=== PATIENT | male | born 1965 | race Caucasian/White ===

== ENCOUNTER 2025-03-16 19:07 | Inpatient (IN) | payer OTHER, SELFPAY ==
--- OUTSIDE RECORDS SUMMARY | 2025-03-16 19:12 | XMS_ITS | Clinical Summary ---
Author Organization [facility] Address [address] [place] [address] Care Team Providers Care Credit Review Manager Name Role Phone Ref, Has No Pcp Or Primary Care Provider Unavail able Allergies Active Allergy Reactions Criticality Noted Date Comments Sulfamethoxazole-Trimethoprim Itching 2021 Medications * This document contains information received from the source organization and may not represent a complete record from that organization. metFORMIN (GLUCOPHAGE) 500 mg tablet Take 500 mg by mouth 2 times a day with meals. Active acetaminophen (TYLENOL) 325 mg tablet Take 2 tablets (650 mg total) by mouth every 4 hours as needed for pain, headache or fever. Active benzonatate (TESSALON) 100 mg capsule Take 1 capsule (100 mg total) by mouth 3 times a day as needed for cough. Active buPROPion XL (WELLBUTRIN XL) 300 mg tablet Take 1 tablet (300 mg total) by mouth once a day. Active guaiFENesin (ROBITUSSIN) 100 mg/5 mL syrup Take 10 mL (200 mg total) by mouth every 4 hours as needed for cough. Active psyllium (METAMUCIL) 3.4 gram packet Take 1 packet by mouth once a day. Active fenofibrate nanocrystallized (TRICOR) 145 mg tablet Take 145 mg by mouth once a day. Active gabapentin (NEURONTIN) 100 mg capsule Take 200 mg by mouth 2 (two) times a day. Active rosuvastatin (CRESTOR) 20 mg tablet Take 1 tablet (20 mg total) by mouth nightly. 30 tablet 1 5 4:30 PM EDT Active sertraline (ZOLOFT) 100 mg tablet Take 1 tablet (100 mg total) by mouth once a day. 30 tablet 5 4:30 PM EDT Active Freestyle Lite test strips Test daily before all meals/snack s and once before bedtime. 50 strip 5 4:30 PM EDT Active Freestyle lancets 28 gauge Test daily before all meals/snack s and once before bedtime. 300 each 4:30 PM EDT Active FreeStyle Lite Meter meter Test daily before all meals/snack s and once before bedtime. 1 each 5 4:30 PM EDT Active alcohol swabs pads, medicated Test daily before all meals/snack s and once before bedtime. 100 each 5 4:30 PM EDT Active gabapentin (NEURONTIN) 300 mg capsule Take 1 capsule (300 mg total) by mouth 3 times a day. 90 capsule 2024 Discontinued(E rror) sertraline (ZOLOFT) 25 mg tablet Take 2 tablets (50 mg total) by mouth once a day. 60 tablet 2024 Discontinued traZODone (DESYREL) 50 mg tablet Take 1 tablet (50 mg total) by mouth nightly as needed for sleep. 30 tablet 2024 Discontinued(E rror) buPROPion XL (WELLBUTRIN XL) 300 mg tablet Take 300 mg by mouth every morning. 2024 Discontinued(S top Taking at Discharge) rosuvastatin (CRESTOR) 5 mg tablet Take 5 mg by mouth nightly. 2024 Discontinued(S top Taking at Discharge) sertraline (ZOLOFT) 100 mg tablet Take 150 mg by mouth once a day. 2024 Discontinued(S top Taking at Discharge) rosuvastatin (CRESTOR) 20 mg tablet Take 1 tablet (20 mg total) by mouth nightly. 30 tablet 1 025 2024 Discontinued sertraline (ZOLOFT) 100 mg tablet Take 1 tablet (100 mg total) by mouth once a day. 30 tablet 025 2024 Discontinued Freestyle Lite test strips Test daily before all meals/snack s and once before bedtime. 20 strip 2024 Discontinued Freestyle lancets 28 gauge Test daily before all meals/snack s and once before bedtime. 3 each 025 2024 Discontinued FreeStyle Lite Meter meter Test daily before all meals/snack s and once before bedtime. 1 each 025 2024 Discontinued alcohol swabs pads, medicated Test daily before all meals/snack s and once before bedtime. 1 each 2024 Discontinued Active Problems Problem Noted Date Diagnosed Date Does not have primary care provider 02/25/2025 Assessment & Plan (03/01/2025 2:35 PM EDT): Patient without a PCP. His medications were prescribed on discharge from psychiatric facility at the end of December 2024. Patient reports compliance with his medications since having them filled, however it does not appear he had filled any medications prior 12/2024. Patient is from the [facility], and plans to return to that area after discharge from inpatient psych. Patient informed of need for monitoring of chronic health issues. - Patient provided with [id number] number. - In dc paperwork, patient given addresses to the walk in clinic at the [facility]. He was encouraged to explore similar options closer to [place]. Assessment & Plan (02/28/2025 1:35 PM EDT): Patient without a PCP. His medications were prescribed on discharge from psychiatric facility at the end of December 2024. Patient reports compliance with his medications since having them filled, however it does not appear he had filled any medications prior 12/2024. Patient is from the [facility], and plans to return to that area after discharge from inpatient psych. Patient informed of need for monitoring of chronic health issues. - Patient provided with [id number] number. - In dc paperwork, patient given addresses to the walk in clinic at the [facility]. He was encouraged to explore similar options closer to [place]. Assessment & Plan (02/27/2025 4:38 PM EDT): Patient without a PCP. His medications were prescribed on discharge from psychiatric facility at the end of December 2024. Patient reports compliance with his medications since having them filled, however it does not appear he had filled any medications prior 12/2024. Patient is from the [facility], and plans to return to that area after discharge from inpatient psych. Patient informed of need for monitoring of chronic health issues. - Patient provided with [id number] number. - In dc paperwork, patient given addresses to the walk in clinic at the [facility]. He was encouraged to explore similar options closer to [place]. Assessment & Plan (02/26/2025 8:39 PM EDT): Patient without a PCP. His medications were prescribed on discharge from psychiatric facility at the end of December 2024. Patient reports compliance with his medications since having them filled, however it does not appear he had filled any medications prior 12/2024. Patient is from the [facility], and plans to return to that area after discharge from inpatient psych. Patient informed of need for monitoring of chronic health issues. -Patient provided with [id number] number. -In dc paperwork, patient given addresses to the walk in clinic at the [facility]. He was encouraged to explore similar options closer to [place]. Assessment & Plan (02/25/2025 12:30 PM EDT): Patient without a PCP. His medications were prescribed on discharge from psychiatric facility at the end of December 2024. Patient reports compliance with his medications since having them filled, however it does not appear he had filled any medications prior 12/2024. Patient is from the [facility], and plans to return to that area after discharge from inpatient psych. Patient informed of need for monitoring of chronic health issues. -Patient provided with [id number] number. -In dc paperwork, patient given addresses to the walk in clinic at the [facility]. He was encouraged to explore similar options closer to [place]. Productive cough 02/24/2025 Assessment & Plan (03/01/2025 2:35 PM EDT): 02/24 patient reports 2 days of cough productive of yellow phlegm. Denies shortness of breath, fevers, but does endorse rhinorrhea and post nasal drip, as well as yellow colored nasal mucus. Patient endorses malaise. Rapid COVID PCR sent on 02/23 pending psychiatric bed admission; PCR was negative. He has been afebrile. Chest x-ray with mild peribronchial thickening and under aerated bases but otherwise unremarkable for acute pulmonary processes. WBCs have remained stable, symptoms likely in the setting of common cold. - If patient febrile, consider resending mini-RVP to include flu - Continue with supportive care and symptom management. - Mucinex 600 mg q12 hours - Tessalon and Robitussin PRN - Flonase PRN - Added cepacol 02/26 Assessment & Plan (02/28/2025 1:35 PM EDT): 02/24 patient reports 2 days of cough productive of yellow phlegm. Denies shortness of breath, fevers, but does endorse rhinorrhea and post nasal drip, as well as yellow colored nasal mucus. Patient endorses malaise. Rapid COVID PCR sent on 02/23 pending psychiatric bed admission; PCR was negative. He has been afebrile. Chest x-ray with mild peribronchial thickening and under aerated bases but otherwise unremarkable for acute pulmonary processes. WBCs have remained stable, symptoms likely in the setting of common cold. - If patient febrile, consider resending mini-RVP to include flu - Continue with supportive care and symptom management. - Mucinex 600 mg q12 hours - Tessalon and Robitussin PRN - Flonase PRN - Added cepacol 02/26 Assessment & Plan (02/27/2025 4:38 PM EDT): 02/24 patient reports 2 days of cough productive of yellow phlegm. Denies shortness of breath, fevers, but does endorse rhinorrhea and post nasal drip, as well as yellow colored nasal mucus. Patient endorses malaise. Rapid COVID PCR sent on 02/23 pending psychiatric bed admission; PCR was negative. He has been afebrile. Chest x-ray with mild peribronchial thickening and under aerated bases but otherwise unremarkable for acute pulmonary processes. WBCs have remained stable, symptoms likely in the setting of common cold. - If patient febrile, consider resending mini-RVP to include flu - Continue with supportive care and symptom management. - Mucinex 600 mg q12 hours - Tessalon and Robitussin PRN - Flonase PRN - Added cepacol 02/26 Assessment & Plan (02/26/2025 8:39 PM EDT): 02/24 patient reports 2 days of cough productive of yellow phlegm. Denies shortness of breath, fevers, but does endorse rhinorrhea and post nasal drip, as well as yellow colored nasal mucus. Patient endorses malaise. Rapid COVID PCR sen ton 02/23 pending psychiatric bed admission; PCR was negative. He has been afebrile. CXR pending formal read, however no focal consolidation appreciated on review of imaging. - If patient febrile, consider resending mini-RVP to include flu - Continue with supportive care and symptom management. - Mucinex 600 mg q12 hours - Tessalon and Robitussin PRN - Flonase PRN - Added cepacol 02/26 Assessment & Plan (02/25/2025 12:30 PM EDT): 02/24 patient reports 2 days of cough productive of yellow phlegm. Denies shortness of breath, fevers, but does endorse rhinorrhea and post nasal drip, as well as yellow colored nasal mucus. Patient endorses malaise. Rapid COVID PCR sen ton 02/23 pending psychiatric bed admission; PCR was negative. He has been afebrile. CXR pending formal read, however no focal consolidation appreciated on review of imaging. -If patient febrile, consider resending mini-RVP to include flu -Continue with supportive care and symptom management. -Mucinex 600 mg q12 hours -Tessalon and Robitussin PRN -Flonase PRN Assessment & Plan (02/24/2025 12:24 PM EDT): 02/24 patient reports 2 days of cough productive of yellow phlegm. Denies shortness of breath, fevers, but does endorse rhinorrhea and post nasal drip, as well as yellow colored nasal mucus. Patient endorses malaise. Rapid COVID PCR sen ton 02/23 pending psychiatric bed admission; PCR was negative. He has been afebrile. -If patient febrile, consider resending mini-RVP to include flu -Continue with supportive care and symptom management. -Mucinex 600 mg q12 hours -Tessalon and Robitussin PRN -Flonase PRN Homelessness unspecified 02/24/2025 Assessment & Plan (03/01/2025 2:35 PM EDT): Patient is undomiciled. SW has been consulted this admission. Patient with case loader operator through [facility] who his assisting him with finding housing. - Patient hopefully to DC to [facility] on 03/02 Assessment & Plan (02/28/2025 1:35 PM EDT): Patient is undomiciled. SW has been consulted this admission. Patient with case loader operator through [facility] who his assisting him with finding housing. - Patient will DC to [facility] on 02/28 Assessment & Plan (02/27/2025 4:38 PM EDT): Patient is undomiciled. SW has been consulted this admission. Patient with case loader operator through [facility] who his assisting him with finding housing. - Patient will DC to [facility] on 02/28 Assessment & Plan (02/26/2025 8:39 PM EDT): Patient is undomiciled. SW has been consulted this admission. Patient with case loader operator through [facility] who his assisting him with finding housing. - Patient states he has a place to go on Wednesday, if no inpatient voluntary psych at this time, patient would like to DC - Will discuss with Assessment & Plan (02/25/2025 12:30 PM EDT): Patient is undomiciled. SW has been consulted this admission. Patient with case loader operator through [facility] who his assisting him with finding housing. Assessment & Plan (02/24/2025 12:24 PM EDT): Patient is undomiciled. SW has been consulted this admission. Patient with case loader operator through [facility] who his assisting him with finding housing. Severe episode of recurrent major depressive disorder, without psychotic features 02/17/2025 Assessment & Plan (03/01/2025 2:35 PM EDT): Home medications: bupropion ER 300 mg daily, sertraline 100 mg daily Patient with known history of MDD, prior SI and suicide attempts in the past, and possible PTSD, however unclear if this is formally diagnosed. He has had multiple inpatient psychiatric admissions. Patient presented to the ED with SI, reported intention/plan to OD on home medications. Patient was seen by [facility], and section [address] He was seen later in admission by psych, and he denied SI, but had ongoing depression with current psychosocial stressors contributing. Patient future oriented, there has been no attempt at self harm before arrival to the hospital and since admission; he was no longer felt to meet section 12 criteria on 02/22, HOWEVER inpatient psych team did report he would benefit most from voluntary inpatient psych admission. - Patient no longer on section 12. 1:1 ak'ed - Plan to DC to [facility] pending medical clearance, hopefully 03/02, pt will continue voluntary psych placement search on own - Continue home doses sertraline and home bupropion Assessment & Plan (02/28/2025 1:35 PM EDT): Home medications: bupropion ER 300 mg daily, sertraline 100 mg daily Patient with known history of MDD, prior SI and suicide attempts in the past, and possible PTSD, however unclear if this is formally diagnosed. He has had multiple inpatient psychiatric admissions. Patient presented to the ED with SI, reported intention/plan to OD on home medications. Patient was seen by [facility], and section [address] He was seen later in admission by psych, and he denied SI, but had ongoing depression with current psychosocial stressors contributing. Patient future oriented, there has been no attempt at self harm before arrival to the hospital and since admission; he was no longer felt to meet section 12 criteria on 02/22, HOWEVER inpatient psych team did report he would benefit most from voluntary inpatient psych admission. - Patient no longer on section 12. 1:1 dc'ed - Plan to DC to [facility] pending medical clearance, hopefully 03/01, pt will continue voluntary psych placement search on own - Continue home doses sertraline and home bupropion Assessment & Plan (02/27/2025 4:38 PM EDT): Home medications: bupropion ER 300 mg daily, sertraline 100 mg daily Patient with known history of MDD, prior SI and suicide attempts in the past, and possible PTSD, however unclear if this is formally diagnosed. He has had multiple inpatient psychiatric admissions. Patient presented to the ED with SI, reported intention/plan to OD on home medications. Patient was seen by EM, and section [address] He was seen later in admission by psych, and he denied SI, but had ongoing depression with current psychosocial stressors contributing. Patient future oriented, there has been no attempt at self harm before arrival to the hospital and since admission; he was no longer felt to meet section 12 criteria on 02/22, HOWEVER inpatient psych team did report he would benefit most from voluntary inpatient psych admission. Sertaline dose was reduced to 50 inpatient, 02/27 reached out to psych to see if pt should remain on 50mg on DC or increase to home dose 100mg--awaiting callback. - Patient no longer on section 12. 1:1 dc'ed - Plan to DC to [facility] 02/28, pt will continue voluntary psych placement search on own - Continue reduced sertraline and home bupropion Assessment & Plan (02/26/2025 8:39 PM EDT): Home medications: bupropion ER 300 mg daily, sertraline 100 mg daily Patient with known history of MDD, prior SI and suicide attempts in the past, and possible PTSD, however unclear if this is formally diagnosed. He has had multiple inpatient psychiatric admissions. Patient presented to the ED with SI, reported intention/plan to OD on home medications. Patient was seen by EM, and section [address] He was seen later in admission by psych, and he denied SI, but had ongoing depression with current psychosocial stressors contributing. Patient future oriented, there has been no attempt at self harm before arrival to the hospital and since admission; he was no longer felt to meet section 12 criteria on 02/22, HOWEVER inpatient psych team did report he would benefit most from voluntary inpatient psych admission. -Patient no longer on section 12. 1:1 dc'ed -Patient with bed offer at [facility]. Bed offer was rescinded as [facility]'s planned dc fell through.--> no bed offers 02/26 -Continue home sertraline and bupropion Assessment & Plan (02/25/2025 12:30 PM EDT): Home medications: bupropion ER 300 mg daily, sertraline 100 mg daily Patient with known history of MDD, prior SI and suicide attempts in the past, and possible PTSD, however unclear if this is formally diagnosed. He has had multiple inpatient psychiatric admissions. Patient presented to the ED with SI, reported intention/plan to OD on home medications. Patient was seen by EM, and section [address] He was seen later in admission by psych, and he denied SI, but had ongoing depression with current psychosocial stressors contributing. Patient future oriented, there has been no attempt at self harm before arrival to the hospital and since admission; he was no longer felt to meet section 12 criteria on 02/22, HOWEVER inpatient psych team did report he would benefit most from voluntary inpatient psych admission. -Patient no longer on section 12. 1:1 dc'ed -Patient with bed offer at [facility]. Bed offer was rescinded as [facility]'s planned dc fell through. Will follow with [facility] on Monday 02/26 regarding bed offers. -Continue home sertraline and bupropion Assessment & Plan (02/24/2025 12:24 PM EDT): Home medications: bupropion ER 300 mg daily, sertraline 150 mg daily Patient with known history of MDD, prior SI and suicide attempts in the past, and possible PTSD, however unclear if this is formally diagnosed. He has had multiple inpatient psychiatric admissions. Patient presented to the ED with SI, reported intention/plan to OD on home medications. Patient was seen by EM, and section [address] He was seen later in admission by psych, and he denied SI, but had ongoing depression with current psychosocial stressors contributing. Patient future oriented, there has been no attempt at self harm before arrival to the hospital and since admission; he was no longer felt to meet section 12 criteria on 02/22, HOWEVER inpatient psych team did report he would benefit most from voluntary inpatient psych admission. -Patient no longer on section 12. 1:1 dc'ed -Patient with bed offer at [facility]. Bed offer was rescinded as [facility]'s planned dc fell through. Will follow with SW on Monday 02/26 regarding bed offers. -Continue home sertraline and bupropion Morbid obesity 02/17/2025 Assessment & Plan (03/01/2025 2:35 PM EDT): Patient with stated weight of 275 on admission; BMI calculated to be 39.46 kg/m2. Patient with decreased mobility since Left BKA in 2023, with decreased activity likely contributing to obesity in some regard. May have a component of OHS. - Diet and activity modifications (as tolerated by patient) - Outpatient follow-up Assessment & Plan (02/28/2025 1:35 PM EDT): Patient with stated weight of 275 on admission; BMI calculated to be 39.46 kg/m2. Patient with decreased mobility since Left BKA in 2023, with decreased activity likely contributing to obesity in some regard. - Diet and activity modifications (as tolerated by patient) - Outpatient follow-up Assessment & Plan (02/27/2025 4:38 PM EDT): Patient with stated weight of 275 on admission; BMI calculated to be 39.46 kg/m2. Patient with decreased mobility since Left BKA in 2023, with decreased activity likely contributing to obesity in some regard. Patient with mild acidosis on admission, bicarb 21, repeat 20. This has since RESOLVED. There is no clear clinical significance for these lab values. Patient with no increased anion gap, no evidence of DKA. On 02/26, bicarb 21, on CXR 02/25, lungs show under aerated bases. This could be in relation to undiagnosed obesity hypoventilation syndrome. - Diet and activity modifications (as tolerated by patient) - Outpatient follow-up Assessment & Plan (02/26/2025 8:39 PM EDT): Patient with stated weight of 275 on admission; BMI calculated to be 39.46 kg/m2. Patient with decreased mobility since Left BKA in 2023, with decreased activity likely contributing to obesity in some regard. Patient with mild acidosis on admission, bicarb 21, repeat 20. This has since RESOLVED. There is no clear clinical significance for these lab values. Patient with no increased anion gap, no evidence of DKA. On 02/26, bicarb 21, on CXR 02/25, lungs show under aerated bases. This could be in relation to undiagnosed obesity hypoventilation syndrome. -Diet and activity modifications (as tolerated by patient) -Outpatient follow-up Assessment & Plan (02/25/2025 12:30 PM EDT): Patient with stated weight of 275 on admission; BMI calculated to be 39.46 kg/m2. Patient with decreased mobility since Left BKA in 2023, with decreased activity likely contributing to obesity in some regard. -Diet and activity modifications (as tolerated by patient) -Outpatient follow-up Assessment & Plan (02/24/2025 12:24 PM EDT): Patient with stated weight of 275 on admission; BMI calculated to be 39.46 kg/m2. Patient with decreased mobility since Left BKA in 2023, with decreased activity likely contributing to obesity in some regard. -Diet and activity modifications (as tolerated by patient) -Outpatient follow-up Type 2 diabetes mellitus wit h circulatory disorder, without long-term current use of insulin 02/17/2025 Assessment & Plan (03/01/2025 2:35 PM EDT): Home medications: metformin 500 mg BID Last HgA1c from this admission 6.3%. Patient with very well controlled FSBS earlier in admission, such that FSBS monitoring was dc'ed. However on BMP, patient with increasing serum glucose levels, as well as ongoing metabolic acidosis. Per pt request, he was on a regular diet since 02/18. On 03/01 diabetes team was consulted for persistent hyperglycemia and new lactic acidosis nonresponsive to fluids. Diabetes team did not feel like LA was triggered by patient's recent metformin use, higher concern for hyperglycemia driving dehydration driving lactic acidosis. They recommended carb controlled diet, low-fat diet and initiated insulin glargine. Patient was not happy about dietary change, however after discussion with patient he is agreeable to modified diet pending any effect on LA. - FSBS ACHS - Start insulin glargine 15 unit(s) daily - MDISS 3 times a day w/ meals - LDISS HS - HOLD metformin while pending LA workup - CC/fat-restricted diet Assessment & Plan (02/28/2025 1:35 PM EDT): Home medications: metformin 500 mg BID Last HgA1c from this admission 6.3%. Patient with very well controlled FSBS earlier in admission, such that FSBS monitoring was dc'ed. However on BMP, patient with increasing serum glucose levels, as well as ongoing metabolic acidosis. - FSBS checks and LDISS qACHS. - Continue with metformin 500 mg BID, however if acidosis is persistent, may consider alternative agent - Patient is currently ordered for a regular diet, and has been since 02/18. Patient request Assessment & Plan (02/27/2025 4:38 PM EDT): Home medications: metformin 500 mg BID Last HgA1c from this admission 6.3%. Patient monitored with qACHS FSBS since admission, and sugars have been well controlled, patient's only reading >200 was on 02/24 AM. - Dc FSBS checks and LDISS as of 02/24. - Continue with metformin 500 mg BID - Patient is currently ordered for a regular diet, and has been since 02/18. Patient request Assessment & Plan (02/26/2025 8:39 PM EDT): Home medications: metformin 500 mg BID Last HgA1c from this admission 6.3%. Patient monitored with qACHS FSBS since admission, and sugars have been well controlled, patient's only reading >200 was on 02/24 AM. -Dc FSBS checks and LDISS as of 02/24. -Continue with metformin 500 mg BID -Patient is currently ordered for a regular diet, and has been since 02/18. Patient request -BMP in AM on 02/26. Will check blood glucose at that time. Assessment & Plan (02/25/2025 12:30 PM EDT): Home medications: metformin 500 mg BID Last HgA1c from this admission 6.3%. Patient monitored with qACHS FSBS since admission, and sugars have been well controlled, patient's only reading >200 was on 02/24 AM. -Dc FSBS checks and LDISS as of 02/24. -Continue with metformin 500 mg BID -Patient is currently ordered for a regular diet, and has been since 02/18. Patient request -BMP in AM on 02/26. Will check blood glucose at that time. Assessment & Plan (02/24/2025 12:24 PM EDT): Home medications: metformin 500 mg BID Last HgA1c from this admission 6.3%. Patient monitored with qACHS FSBS since admission, and sugars have been well controlled, patient's only reading >200 was on 02/24 AM. -Dc FSBS checks and LDISS as of 02/24. -Continue with metformin 500 mg BID -Patient is currently ordered for a regular diet, and has been since 02/18. Patient request -BMP in AM on 02/26. Will check blood glucose at that time. Depression 12/28/2021 Cellulitis 12/07/2021 Assessment & Plan (12/11/2021 5:24 PM EDT): Patient with recurrent cellulitis of the lower extermities now p/w 2 days of swelling and pain and redness in his left lower extremity. 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 - Afebrile - CT LL: Nonspecific circumferential subcutaneous soft tissue edema of the right lower leg. No soft tissue air or deep perifascial fluid is seen. No discrete drainable collection is identified. - US:Targeted sonographic examination of the right lower leg demonstrates extensive subcutaneous edema with superimposed hyperemia, which could represent cellulitis in the appropriate clinical context. No discrete drainable fluid collection. - Continue vancomycin for now, erythema improving. But will benefit from another 1 to 2 days of IV antibiotics. - Elevate leg - Promoted early ambulation - Pain control with ibuprofen PRN - MRSA + Assessment & Plan (12/07/2021 5:45 AM EDT): Patient with recurrent cellulitis of the lower extermities. Has had it in the past. Now comes in with 2 day sof swelling and pain and redness in his left lower extremity. Came into the ED and had a CT leg which was negative for any evidence of necrotizing fasciitis. He was started on vancomycin and zosyn and brought in for admisiosn. PLAN Vancomycin and Zosyn If improving, transition to augmentin and discharge home. followup MRSA PCR Hyponatremia 12/07/2021 Assessment & Plan (12/11/2021 5:15 PM EDT): Patient with sodium of 127. Dehydrated on exam so is likely Hypovolemic hyponatremia. -normalized Assessment & Plan (12/07/2021 5:28 AM EDT): Patient with sodium of 127. Dehydrated on exam so is likely Hypovolemic hyponatremia. Will hydrate and reevaluate sodium level. Already received 1 liter of NS bolus. Will give 1 more liter of LR PLAN 1 liter of LR at 125cc/hr Repeat sodium in AM Pain 12/07/2021 Assessment & Plan (12/11/2021 5:16 PM EDT): Patient with severe pain secondary to severe cellulitis. Has pulses in leg.continue standing tylenol, cont ibuprofen, lidocaine patch, gabapentin and prn oxycodone Assessment & Plan (12/07/2021 5:50 AM EDT): Patient with severe pain secondary to severe cellulitis. Has pulses in leg. Will start standing tylenol, toradol, lidocaine patch, gabapentin and prn oxycodone Ulcer of right foot, limited to breakdown of ski n 12/07/2021 Assessment & Plan (12/11/2021 5:18 PM EDT): Patient with chronic ulcer on the right foot sole. Has previously been seen by wound care. Look like it may be draining a little bit. Seen by ortho. Assessment & Plan (12/07/2021 5:52 AM EDT): Patient with chronic ulcer on the right foot sole. Has previously been seen by wound care. Look like it may be draining a little bit. Will consult podiatry to evaluate the wound. Cellulitis of right lower extremity 12/07/2021 Lower back pain 06/03/2010 Hypercholesterolemia 06/03/2010 Assessment & Plan (03/01/2025 2:35 PM EDT): Home medication: rosuvastatin 5 mg nightly, fenofibrate 145 mg daily Lipid panel performed this admission with cholesterol 262, HDL 26, and triglycerides were extremely elevated to 1092. Pt requesting repeat lipid panel, performed on 02/28 with improvement of TG to 484, and there was also improvement in cholesterol and HDL levels. Despite education on dietary choices earlier in admission patient requested regular diet which he has been on since 02/18. On 03/01 diabetes team was consulted for persistent hyperglycemia and new lactic acidosis nonresponsive to fluids. They recommended carb controlled diet, low-fat diet. Patient was not happy about dietary change, however after discussion with patient he is agreeable for the time being. - CCD/low fat diet - ASCVD score rec high intensity statin. Rosuvastatin increased to 20 mg at bedtime - Resumed fenofibrate at 160 mg daily Assessment & Plan (02/28/2025 1:35 PM EDT): Home medication: rosuvastatin 5 mg nightly, fenofibrate 145 mg daily Lipid panel performed this admission with cholesterol 262, HDL 26, and triglycerides were extremely elevated to 1092. Pt requesting repeat lipid panel, performed on 02/28 with improvement of TG to 484, and there was also improvement in cholesterol and HDL levels. - Ordered for regular diet. Patient educated on dietary order choice earlier in admission. - ASCVD score rec high intensity statin. Rosuvastatin increased to 20 mg at bedtime - Resumed fenofibrate at 160 mg daily Assessment & Plan (02/27/2025 4:38 PM EDT): Home medication: rosuvastatin 5 mg nightly, fenofibrate 145 mg daily Lipid panel performed this admission with cholesterol 262, HDL 26, and triglycerides were extremely elevated to 1092. Pt requesting repeat lipid panel on day of DC so he has a baseline outpt. - Lipid panel 02/28 at 0300 - Ordered for regular diet. Patient educated on dietary order choice earlier in admission. - ASCVD score rec high intensity statin. Rosuvastatin increased to 20 mg at bedtime - Resumed fenofibrate at 160 mg daily Assessment & Plan (02/26/2025 8:39 PM EDT): Home medication: rosuvastatin 5 mg nightly, fenofibrate 145 mg daily Lipid panel performed this admission with cholesterol 262, HDL 26, and triglycerides were extremely elevated to 1092. -Ordered for regular diet. Patient educated on dietary order choice earlier in admission. -ASCVD score rec high intensity statin. Rosuvastatin increased to 20 mg at bedtime -Resumed fenofibrate at 160 mg daily Assessment & Plan (02/25/2025 12:30 PM EDT): Home medication: rosuvastatin 5 mg nightly, fenofibrate 145 mg daily Lipid panel performed this admission with cholesterol 262, HDL 26, and triglycerides were extremely elevated to 1092. -Ordered for regular diet. Patient educated on dietary order choice earlier in admission. -ASCVD score rec high intensity statin. Rosuvastatin increased to 20 mg at bedtime -Resumed fenofibrate at 160 mg daily Assessment & Plan (02/24/2025 12:24 PM EDT): Home medication: rosuvastatin 5 mg nightly, fenofibrate 145 mg daily No recent lipid panel available for review; last in 2021 with TG 216, LDL 115, HDL 36, and cholesterol was 194. Patient requesting to be on regular diet this admission. -Continue on regular diet. Patient educated on dietary order choice earlier in admission. -Lipid panel added on to most recent labs -Continue rosuvastatin 5 mg at bedtime -Pending creatinine stability on 02/26 labs, plan to resume fenofibrate at home dose. Resolved Problems Problem Noted Date Diagnosed Date Resolved Date Lactic acid increased 02/28/20252024 Assessment & Plan (03/01/2025 2:35 PM EDT): Patient with mild acidosis on admission, bicarb 21, repeat 20. There was no increase in AG, no evidence of DKA. Patient with recurrence of acidosis on labs from 02/26, with increase in AG (13, had been 12). Lactic acid 1.9, repeat 2.4. DDx includes metformin use inducing acidosis, hypoventilation causing acidosis, possible starvation acidosis. Regarding the latter, patient reports good PO intake, but also has good UOP, leading to net negative fluid balances over the past several days. Acidosis is likely driven by OHS as pt has under aerated bases on CXR. No salicylate nor APAP use, no evidence of ingestions, no nebulizer use. LA persisting greater than 2 s/p 1 L LR overnight, consulted diabetes service for potential lactic acidosis driven by metformin. Diabetes team less concerned with metformin as the cause, more concerned with hyperglycemia driving and dehydration driving the lactic acidosis. They recommended holding metformin while lactic acidosis workup continues, added insulin glargine, changed to medium dose sliding scale with meals, and transition to CCD/low-fat diet. Additional 500 cc normal saline was given, lactic acid largely unchanged. Will continue patient on 100 cc NS for 2 L and recheck lactic acid tonight. - NS @ 100cc x 2L - Repeat LA 6pm --> if cleared DO NOT ORDER REPEAT, repeat w/ AM labs if elevated - CC/low fat diet - DM management per DM A&P Assessment & Plan (02/28/2025 5:13 PM EDT): Patient with mild acidosis on admission, bicarb 21, repeat 20. There was no increase in AG, no evidence of DKA. Patient with recurrence of acidosis on labs from 02/26, with increase in AG (13, had been 12). On repeat, acidosis once again improved, but AG continued to widen, now borderline at 15. Lactic acid 1.9, repeat 2.4. DDx includes metformin use inducing acidosis, hypoventilation causing acidosis, possible starvation acidosis. Regarding the latter, patient reports good PO intake, but also has good UOP, leading to net negative fluid balances over the past several days. No salicylate nor APAP use, no evidence of ingestions, no nebulizer use. -1L LR ordered -BMP, lactic acid redraw at 4PM. Based on results, will order additional work-up as needed. -BMP and lactic acid in AM Metabolic acidosis 02/24/2025 Assessment & Plan (02/27/2025 4:38 PM EDT): Patient with stated weight of 275 on admission; BMI calculated to be 39.46 kg/m2. Patient with decreased mobility since Left BKA in 2023, with decreased activity likely contributing to obesity in some regard. Patient with mild acidosis on admission, bicarb 21, repeat 20. This has since RESOLVED. There is no clear clinical significance for these lab values. Patient with no increased anion gap, no evidence of DKA. On 02/26, bicarb 21, on CXR 02/25, lungs show under aerated bases. This could be in relation to undiagnosed obesity hypoventilation syndrome. - Diet and activity modifications (as tolerated by patient) - Outpatient follow-up Assessment & Plan (02/26/2025 8:39 PM EDT): Patient with stated weight of 275 on admission; BMI calculated to be 39.46 kg/m2. Patient with decreased mobility since Left BKA in 2023, with decreased activity likely contributing to obesity in some regard. Patient with mild acidosis on admission, bicarb 21, repeat 20. This has since RESOLVED. There is no clear clinical significance for these lab values. Patient with no increased anion gap, no evidence of DKA. On 02/26, bicarb 21, on CXR 02/25, lungs show under aerated bases. This could be in relation to undiagnosed obesity hypoventilation syndrome. -Diet and activity modifications (as tolerated by patient) -Outpatient follow-up Assessment & Plan (02/25/2025 12:30 PM EDT): Patient with mild acidosis on admission, bicarb 21, repeat 20. This has since RESOLVED. There is no clear clinical significance for these lab values. Patient with no increased anion gap, no evidence of DKA. Assessment & Plan (02/24/2025 12:24 PM EDT): Patient with mild acidosis on admission, bicarb 21, repeat 20. This has since RESOLVED. There is no clear clinical significance for these lab values. Patient with no increased anion gap, no evidence of DKA. Suicidal ideation 02/19/2025 03/02/2025 Assessment & Plan (03/01/2025 2:35 PM EDT): Home medications: bupropion ER 300 mg daily, sertraline 100 mg daily Patient with known history of MDD, prior SI and suicide attempts in the past, and possible PTSD, however unclear if this is formally diagnosed. He has had multiple inpatient psychiatric admissions. Patient presented to the ED with SI, reported intention/plan to OD on home medications. Patient was seen by EM, and section [address] He was seen later in admission by psych, and he denied SI, but had ongoing depression with current psychosocial stressors contributing. Patient future oriented, there has been no attempt at self harm before arrival to the hospital and since admission; he was no longer felt to meet section 12 criteria on 02/22, HOWEVER inpatient psych team did report he would benefit most from voluntary inpatient psych admission. - Patient no longer on section 12. 1:1 dc'ed - Plan to PR to [facility] pending medical clearance, hopefully 03/02, pt will continue voluntary psych placement search on own - Continue home doses sertraline and home bupropion Assessment & Plan (02/28/2025 1:35 PM EDT): Home medications: bupropion ER 300 mg daily, sertraline 100 mg daily Patient with known history of MDD, prior SI and suicide attempts in the past, and possible PTSD, however unclear if this is formally diagnosed. He has had multiple inpatient psychiatric admissions. Patient presented to the ED with SI, reported intention/plan to OD on home medications. Patient was seen by EM, and section [address] He was seen later in admission by psych, and he denied SI, but had ongoing depression with current psychosocial stressors contributing. Patient future oriented, there has been no attempt at self harm before arrival to the hospital and since admission; he was no longer felt to meet section 12 criteria on 02/22, HOWEVER inpatient psych team did report he would benefit most from voluntary inpatient psych admission. - Patient no longer on section 12. 1:1 dc'ed - Plan to DC to [facility] pending medical clearance, hopefully 03/01, pt will continue voluntary psych placement search on own - Continue home doses sertraline and home bupropion Assessment & Plan (02/27/2025 4:38 PM EDT): Home medications: bupropion ER 300 mg daily, sertraline 100 mg daily Patient with known history of MDD, prior SI and suicide attempts in the past, and possible PTSD, however unclear if this is formally diagnosed. He has had multiple inpatient psychiatric admissions. Patient presented to the ED with SI, reported intention/plan to OD on home medications. Patient was seen by EM, and section [address] He was seen later in admission by psych, and he denied SI, but had ongoing depression with current psychosocial stressors contributing. Patient future oriented, there has been no attempt at self harm before arrival to the hospital and since admission; he was no longer felt to meet section 12 criteria on 02/22, HOWEVER inpatient psych team did report he would benefit most from voluntary inpatient psych admission. Sertaline dose was reduced to 50 inpatient, 02/27 reached out to psych to see if pt should remain on 50mg on DC or increase to home dose 100mg--awaiting callback. - Patient no longer on section 12. 1:1 dc'ed - Plan to DC to [facility] 02/28, pt will continue voluntary psych placement search on own - Continue reduced sertraline and home bupropion Assessment & Plan (02/26/2025 8:39 PM EDT): Home medications: bupropion ER 300 mg daily, sertraline 100 mg daily Patient with known history of MDD, prior SI and suicide attempts in the past, and possible PTSD, however unclear if this is formally diagnosed. He has had multiple inpatient psychiatric admissions. Patient presented to the ED with SI, reported intention/plan to OD on home medications. Patient was seen by EM, and section [address] He was seen later in admission by psych, and he denied SI, but had ongoing depression with current psychosocial stressors contributing. Patient future oriented, there has been no attempt at self harm before arrival to the hospital and since admission; he was no longer felt to meet section 12 criteria on 02/22, HOWEVER inpatient psych team did report he would benefit most from voluntary inpatient psych admission. -Patient no longer on section 12. 1:1 dc'ed -Patient with bed offer at [facility]. Bed offer was rescinded as [facility]'s planned dc fell through.--> no bed offers 02/26 -Continue home sertraline and bupropion Assessment & Plan (02/25/2025 12:30 PM EDT): Home medications: bupropion ER 300 mg daily, sertraline 100 mg daily Patient with known history of MDD, prior SI and suicide attempts in the past, and possible PTSD, however unclear if this is formally diagnosed. He has had multiple inpatient psychiatric admissions. Patient presented to the ED with SI, reported intention/plan to OD on home medications. Patient was seen by EM, and section [address] He was seen later in admission by psych, and he denied SI, but had ongoing depression with current psychosocial stressors contributing. Patient future oriented, there has been no attempt at self harm before arrival to the hospital and since admission; he was no longer felt to meet section 12 criteria on 02/22, HOWEVER inpatient psych team did report he would benefit most from voluntary inpatient psych admission. -Patient no longer on section 12. 1:1 dc'ed -Patient with bed offer at [facility]. Bed offer was rescinded as [facility]'s planned dc fell through. Will follow with [facility] on Monday 02/26 regarding bed offers. -Continue home sertraline and bupropion Assessment & Plan (02/24/2025 12:24 PM EDT): Home medications: bupropion ER 300 mg daily, sertraline 150 mg daily Patient with known history of MDD, prior SI and suicide attempts in the past, and possible PTSD, however unclear if this is formally diagnosed. He has had multiple inpatient psychiatric admissions. Patient presented to the ED with SI, reported intention/plan to OD on home medications. Patient was seen by EM, and section [address] He was seen later in admission by psych, and he denied SI, but had ongoing depression with current psychosocial stressors contributing. Patient future oriented, there has been no attempt at self harm before arrival to the hospital and since admission; he was no longer felt to meet section 12 criteria on 02/22, HOWEVER inpatient psych team did report he would benefit most from voluntary inpatient psych admission. -Patient no longer on section 12. 1:1 dc'ed -Patient with bed offer at [facility]. Bed offer was rescinded as [facility]'s planned dc fell through. Will follow with SW on Monday 02/26 regarding bed offers. -Continue home sertraline and bupropion Immunizations Immunization Administration Dates Next Due Covid-19, Pfizer, mRNA, [place] valent, PF 30 mcg/0.3 mL dose (for ages 12 and older) 08/05/2021 Covid-19, Pfizer, mRNA, [place] valent, PF, 30 mcg/0.3 mL dose, autumn-sucrose (COMIRNATY)(for ages 12 and older) 08/06/2021 INFLUENZA, SPLIT VIRUS, TRIVALENT, PF 02/17/2025 (Deferred: Patient Refused) Family History Medical History Relation Name Comments Breast cancer Mother Cancer Mother Relation Name Status Comments Mother Social History Tobacco Use Types Packs/Day Years Used Date Smoking Tobacco: Never Smokeless Tobacco: Never Comments:: Alcohol Use Standard Drinks/Week Comments Never 0 (1 standard drink = 0.6 oz pur e alcohol) Hunger Vital Sign Answer Date Recorded Within the past 12 months, y ou worried that your food would run out before you got the money to buy more. Never true 02/18/20 25 Within the past 12 months, t he food you bought just didn't last and you didn't have money to get more. Never true 02/17/2025 [facility] Utilities Answer Date Recorded In the past 12 months has th e electric, gas, oil, or water company threatened to shut off services in your home? Patient declined 02/17/2025 Transportation Answer Date Recorded In the past 12 months, has l ack of reliable transportation kept you from medical appointments, meetings, work or from getting things needed for daily living? Yes 02/17/2025 Housing Answer Date Recorded Housing Risk Low 1 02/17/2025 Housing Risk Medium Not on file 02/17/2025 Housing Risk High 1 02/17/2025 What is your living situation today? [email or web address] 02/17/2025 Sex and Gender Information Value Date Recorded Sex Assigned at Male 02/15/2025 11:32 PM EDT Legal Sex Male 7:09 AM EDT Gender Identity Male 02/15/2025 11:32 PM EDT Sexual Orientation Not on file Last Filed Vital Signs Vital Sign Reading Time Taken Comments Blood Pressure 121/79 03/02/2025 6:29 AM EDT Pulse 89 03/02/2025 6:29 AM EDT Temperature 36.7 C (98.1 F) 03/02/2025 6:29 AM EDT Respiratory Rate 17 03/02/2025 6:29 AM EDT Oxygen Saturation 97% 03/02/2025 6:29 AM EDT Inhaled Oxygen Concentration - - Weight 124.7 kg (275 lb) 02/15/2025 7:47 PM EDT Height 177.8 cm (5' 10 ) 02/15/2025 7:47 PM EDT Body Mass Index 39.46 02/15/2025 7:47 PM EDT Plan of Treatment Health Maintenance Due Date Last Done Comments Cologuard 1966 Colon Cancer Screening 1966 Colonoscopy 1966 FOBT / Fit Test 1966 HIV Screening 1966 Sigmoidoscopy 1966 Ophthalmology Exam 1976 Urine Microalbumin 1976 Hepatitis B Vaccines (1 of 3 - 19+ 3-dose series) 1985 Pneumococcal Vaccine: 50+ Ye ars (1 of 2 - PCV) 1985 DTaP,Tdap,and Td Vaccines (1 - Tdap) 1988 Zoster Vaccines (1 of 2) 2016 Alcohol/Substance Use Screening 05/31/2024 Depression Screening and Follow-Up 05/31/2024 COVID-19 Vaccine (3 - 2024-2 6 season) 2025 08/06/2021, 08/05/2021 Influenza Vaccine (#1) 2025 Hemoglobin A1C 08/17/2025 02/17/2025, 10/29, 12/29/2021, Additional history exists Social Drivers of Health [place] ual Screening 02/17/2026 02/17/2025 Basic Metabolic Panel 03/02/2026 03/02/2025 , 03/01/2025, 02/28/2025, Additional history exists RSV Vaccine (60+ years old a nd patients) (1 - 1-dose 75+ series) 2041 Hepatitis C Screening Completed 08/07/2021 Procedures * Due to [place] state law, this organization might not be sharing negative HIV tests. Procedure Name Priority Date/Time Associated Diagnosis Comments POCT GLUCOSE Routine 03/02/2025 7:20 AM EDT CBC Routine 03/02/2025 5:40 AM EDT BASIC METABOLIC PANEL Routine 03/02/2025 5:40 AM EDT POCT GLUCOSE Routine 03/01/2025 8:47 PM EDT POCT GLUCOSE Routine 03/01/2025 5:39 PM EDT LACTIC ACID, PLASMA Timed 03/01/2025 5 :28 PM EDT LACTIC ACID, PLASMA Timed 03/01/2025 1 2:59 PM EDT POCT GLUCOSE Routine 03/01/2025 11:53 AM EDT POCT GLUCOSE Routine 03/01/2025 8:30 AM EDT LACTIC ACID, PLASMA Timed 03/01/2025 5 :53 AM EDT POCT GLUCOSE Routine 03/01/2025 3:46 AM EDT BASIC METABOLIC PANEL Timed 03/01/2025 2:42 AM EDT LACTIC ACID, PLASMA Routine 03/01/2025 2 :42 AM EDT PHOSPHORUS Routine 03/01/2025 2:42 AM EDT MAGNESIUM Routine 03/01/2025 2:42 AM EDT LACTIC ACID, PLASMA Routine 02/28/2025 9 :22 PM EDT POCT GLUCOSE Routine 02/28/2025 7:55 PM EDT POCT GLUCOSE Routine 02/28/2025 4:56 PM EDT BASIC METABOLIC PANEL Routine 02/28/2025 4:37 PM EDT LACTIC ACID, PLASMA Routine 02/28/2025 4:37 PM EDT POCT GLUCOSE Routine 02/28/2025 12:09 PM EDT CBC STAT 02/28/2025 11:07 AM EDT LACTIC ACID, PLASMA STAT 02/28/2025 1 1:07 AM EDT CBC AUTO DIFFERENTIAL STAT 02/28/2025 11:07 AM EDT LACTIC ACID, PLASMA STAT 02/28/2025 1 0:14 AM EDT BASIC METABOLIC PANEL Add-On 02/28/2025 5:25 AM EDT LIPID PANEL Routine 02/28/2025 5:25 AM EDT BASIC METABOLIC PANEL Timed 02/26/2025 1:19 PM EDT CBC AUTO DIFFERENTIAL Timed 02/26/2025 1:19 PM EDT XR CHEST 1 VW Routine 02/24/2025 12:45 PM EDT LIPID PANEL Routine 02/24/2025 12:15 PM EDT POCT GLUCOSE Routine 02/24/2025 8:14 AM EDT POCT GLUCOSE Routine 02/23/2025 9:47 PM EDT POCT GLUCOSE Routine 02/23/2025 5:48 PM EDT POCT GLUCOSE Routine 02/23/2025 1:51 PM EDT POCT GLUCOSE Routine 02/23/2025 10:47 AM EDT POCT GLUCOSE Routine 02/22/2025 8:20 PM EDT POCT GLUCOSE Routine 02/22/2025 5:21 PM EDT POCT GLUCOSE Routine 02/22/2025 3:33 PM EDT POCT GLUCOSE Routine 02/22/2025 9:41 AM EDT POCT GLUCOSE Routine 02/21/2025 7:49 PM EDT POCT GLUCOSE Routine 02/21/2025 4:03 PM EDT POCT GLUCOSE Routine 02/21/2025 2:13 PM EDT POCT GLUCOSE Routine 02/21/2025 9:52 AM EDT POCT GLUCOSE Routine 02/20/2025 10:01 AM EDT POCT GLUCOSE Routine 02/19/2025 7:58 PM EDT POCT GLUCOSE Routine 02/19/2025 4:31 PM EDT POCT GLUCOSE Routine 02/19/2025 1:02 PM EDT BASIC METABOLIC PANEL STAT 02/19/2025 10:54 AM EDT POCT GLUCOSE Routine 02/19/2025 8:36 AM EDT BASIC METABOLIC PANEL Timed 02/19/2025 4:24 AM EDT CBC AUTO DIFFERENTIAL Timed 02/19/2025 4:24 AM EDT POCT GLUCOSE Routine 02/18/2025 8:22 PM EDT POCT GLUCOSE Routine 02/18/2025 4:36 PM EDT POCT GLUCOSE Routine 02/18/2025 12:17 PM EDT POCT GLUCOSE Routine 02/18/2025 8:32 AM EDT POCT GLUCOSE Routine 02/17/2025 8:49 PM EDT POCT GLUCOSE Routine 02/17/2025 6:44 PM EDT TSH Routine 02/17/2025 10:41 AM EDT HEMOGLOBIN A1C Routine 02/17/2025 10:41 AM EDT CBC AUTO DIFFERENTIAL Routine 02/17/2025 10:41 AM EDT COMPREHENSIVE METABOLIC PANEL Routine 02/17/2025 10:41 AM EDT RAPID COVID-19 RNA FOR SURVEILLANCE (ED ONLY) STAT 02/15/2025 8:49 PM EDT from Last 3 Months Results * Due to [place] state law, this organization might not be sharing negative HIV tests. * (ABNORMAL) POCT Glucose, interfaced (03/02/2025 7:20 AM EDT) Only the most recent of33 resultswithin the time period is included. [facility] Signature Glucose, POCT 137(H) 70 - 99 mg/dL 03/02/2025 7:20 AM EDT [facility] Comment: The channel process supervisor has not determined the efficacy of this test in Critically ill patients. [facility] defines Critically ill patients for the purpose of blood glucose monitoring (BGM) by glucometer, as patients meeting one or more of the following criteria: Hypotension- non-ICU patients (systolic blood pressure Less than 90 mmHg) due to shock Hypotension -ICU patients (Mean Arterial Pressure (MAP) <60 mmHg or systolic blood pressure < 90 mmHg due to shock Patients receiving Vasopressors (phenylephrine, vasopressin or norepinephrine) Anasarca In all locations, BGM test results should not be relied upon in the above situations, unless these results confirmed with lab-based glucose values. Blood 03/02/2025 7:20 AM EDT 03/02/2025 7:20 AM EDT us Any Mccall MD LAB POCT ORDERABLES - DEVICE F inal Result [facility] [address] [place] [address], [place] * CBC (03/02/2025 5:40 AM EDT) Only the most recent of2 resultswithin the time period is included. WBC 8.3 3.8 - 10.8 10*3/uL 03/02/2025 6:29 AM EDT [facility] RBC 4.90 4.20 - 5.80 10*6/uL 03/02/2025 6:29 AM EDT [facility] Hemoglobin 14.1 13.2 - 17.1 g/dL 03/02/2025 6:29 AM EDT [facility] Hematocrit 41.4 38.5 - 50.0 % 03/02/2025 6:29 AM EDT [facility] MCV 84.5 80.0 - 100.0 fL 03/02/2025 6:29 AM EDT [facility] MCH 28.8 27.0 - 33.0 pg 03/02/2025 6:29 AM EDT [facility] MCHC 34.1 32.0 - 36.0 g/dL 03/02/2025 6:29 AM EDT [facility] RDW 13.2 11.0 - 15.0 % 03/02/2025 6:29 AM EDT [facility] Platelets 272 140 - 400 10*3/uL 03/02/2025 6:29 AM EDT [facility] MPV 9.0 7.5 - 12.5 fL 03/02/2025 6:29 AM EDT [facility] Blood Structure of peripheral vein / Unknown Venipuncture / Unknown 03/02/2025 5:40 AM EDT 03/02/2025 5:56 AM EDT us Chetna MCCONNELL LAB BLOOD ORDERABLES Final R esult [facility] [address] [place] [address], * (ABNORMAL) Basic metabolic panel (03/02/2025 5:40 AM EDT) Only the most recent of7 resultswithin the time period is included. NA 137 135 - 145 mmol/L 03/02/2025 6:42 AM EDT [facility] K 4.3 3.5 - 5.3 mmol/L 03/02/2025 6:42 AM EDT [facility] Cl 101 97 - 110 mmol/L 03/02/2025 6:42 AM EDT [facility] CO2 23 22 - 32 mmol/L 03/02/2025 6:42 AM EDT [facility] BUN 13 7 - 23 mg/dL 03/02/2025 6:42 AM EDT [facility] Creatinine 0.79 0.60 - 1.30 mg/dL 03/02/2025 6:42 AM EDT [facility] Glucose 182(H) 65 - 99 mg/dL 03/02/2025 6:42 AM EDT [facility] Calcium 9.5 8.6 - 10.5 mg/dL 03/02/2025 6:42 AM EDT [facility] Anion Gap 13 5 - 15 03/02/2025 6:42 AM EDT [facility] eGFR >90 >=60 mL/min/1. 73m2 03/02/2025 6:42 AM EDT [facility] Comment:The estimated glomer ular filtration rate (eGFR) is calculated using a new formula developed by the NKF-ASN task force to eliminate race-based correction factors. The new formula uses serum/plasma creatinine, age, and gender to determine eGFR. A value below 60mls/min might indicate kidney disease and will be flagged. For additional information, see Lora et al, Am J Kidney Dis. 2021;79(2):268- 288, A Unifying Approach for GFR estimation: Recommendations of the NKF-ASN Task Force on Reassessing the Inclusion of Race in Diagnosing Kidney Disease . Blood Structure of peripheral vein / Unknown Venipuncture / Unknown 03/02/2025 5:40 AM EDT 03/02/2025 5:56 AM EDT Chetna MCCONNELL LAB BLOOD ORDERABLES Final R esult [facility] [address] [place] [address], * Lactic Acid, Plasma (03/01/2025 5:28 PM EDT) Only the most recent of8 resultswithin the time period is included. Lactic Acid 1.7 0.5 - 1.9 mmol/L 03/01/2025 6:06 PM EDT [facility] Comment: Sepsis Screening: Initial Lactate Level >2.0 mmol/L - Repeat Lactate Level within 3 hours. Initial Lactate Level >4.0 mmol/L - Repeat Lactate Level within 3 hours, Initiate Septic Shock Protocol. Blood Structure of peripheral vein / Unknown Venipuncture / Unknown 03/01/2025 5:28 PM EDT 03/01/2025 5:33 PM EDT Chetna MCCONNELL LAB BLOOD ORDERABLES Final R esult Performing Organization Address City/State/[facility] de Phone Number [facility] [address] [place] [id number], [place] * (ABNORMAL) Phosphorus (03/01/2025 2:42 AM EDT) Phosphorus 2.3(L) 2.5 - 4.5 mg/dL 03/01/2025 3:31 AM EDT [facility] Blood Structure of peripheral vein / Unknown Venipuncture / Unknown 03/01/2025 2:42 AM EDT 03/01/2025 2:46 AM EDT Jojo MCCONNELL LAB BLOOD ORDERABLES Final Re sult Performing Organization Address [facility] de Phone Number [facility] [address] [place] [address], [place] * Magnesium (03/01/2025 2:42 AM EDT) MG 1.8 1.6 - 2.4 mg/dL 03/01/2025 3:31 AM EDT [facility] Blood Structure of peripheral vein / Unknown Venipuncture / Unknown 03/01/2025 2:42 AM EDT 03/01/2025 2:46 AM EDT Jojo MCCONNELL LAB BLOOD ORDERABLES Final Re sult Performing Organization Address [facility] de Phone Number [facility] [address] [place] [id number], [place] * (ABNORMAL) CBC Auto Differential (02/28/2025 11:07 AM EDT) Only the most recent of4 resultswithin the time period is included. WBC 8.6 3.8 - 10.8 10*3/uL 02/28/2025 11:16 AM EDT [facility] RBC 5.09 4.20 - 5.80 10*6/uL 02/28/2025 11:16 AM [facility] Hemoglobin 14.7 13.2 - 17.1 g/dL 02/28/2025 11:16 AM [facility] Hematocrit 43.3 38.5 - 50.0 % 02/28/2025 11:16 AM [facility] MCV 85.1 80.0 - 100.0 fL 02/28/2025 11:16 AM [facility] MCH 28.9 27.0 - 33.0 pg 02/28/2025 11:16 AM [facility] MCHC 33.9 32.0 - 36.0 g/dL 02/28/2025 11:16 AM [facility] RDW 13.4 11.0 - 15.0 % 02/28/2025 11:16 AM [facility] Platelets 259 140 - 400 10*3/uL 02/28/2025 11:16 AM [facility] MPV 9.0 7.5 - 12.5 fL 02/28/2025 11:16 AM [facility] Neutrophil % 65.0 % 02/28/2025 11:16 AM [facility] Immature Grans % 1.5(H) 0.0 - 0.9 % 02/28/2025 11:16 AM [facility] Lymphocyte % 21.4 % 02/28/2025 11:16 AM [facility] Monocyte % 7.1 % 02/28/2025 11:16 AM [facility] Eosinophil % 4.2 % 02/28/2025 11:16 AM [facility] Basophil % 0.8 % 02/28/2025 11:16 AM [facility] Neutrophil # 5.59 1.50 - 7.80 10*3/uL 02/28/2025 11:16 AM EDT [facility] Immature Grans # 0.13(H) <=0.03 10*3/uL 02/28/2025 11:16 AM EDT [facility] Lymphocyte # 1.80 0.85 - 3.90 10*3/uL 02/28/2025 11:16 AM EDT [facility] Monocyte # 0.60 0.20 - 0.95 10*3/uL 02/28/2025 11:16 AM EDT [facility] Eosinophil # 0.40 0.02 - 0.50 10*3/uL 02/28/2025 11:16 AM EDT [facility] Basophil # 0.10 0.00 - 0.20 10*3/uL 02/28/2025 11:16 AM EDT [facility] nRBC % 0.0 /100 WBCs 02/28/2025 11:16 AM EDT [facility] nRBC # <0.01 <0.01 10*3/uL 02/28/2025 11:16 AM EDT [facility] Blood Structure of peripheral vein / Unknown Venipuncture / Unknown 02/28/2025 11:07 AM EDT 02/28/2025 11:11 AM EDT us Jojo MCCONNELL LAB BLOOD ORDERABLES Final Re sult [facility] [address] [place] [address], [place] * (ABNORMAL) Lipid panel (02/28/2025 5:25 AM EDT) Only the most recent of2 resultswithin the time period is included. Cholesterol 190 <=199 mg/dL 02/28/2025 6:50 AM EDT [facility] Triglycerides 484(H) <=149 mg/dL 02/28/2025 6:50 AM EDT [facility] Cholesterol, HDL 30(L) 40 - 59 mg/dL 02/28/2025 6:50 AM EDT [facility] Cholesterol, Non-HDL 160 mg/dL 02/28/2025 6:50 AM EDT [facility] LDL Cholesterol 6:50 AM EDT [facility] Comment: Unable to calculate due to elevated Triglycerides LDL-C is calculated using the Friedewald calculation. VLDL 02/28/2025 6:50 AM EDT [facility] Comment: Unable to calculate due to elevated Triglycerides Cholesterol/HDL Ratio 6.3(H) <5.0 02/28/2025 6:50 AM EDT [facility] Blood Structure of peripheral vein / Unknown Venipuncture / Unknown 02/28/2025 5:25 AM EDT 02/28/2025 6:08 AM EDT Narrative [facility] - 02/28/2025 6:50 AM EDT Adult Treatment Panel III Guidelines of NCEP 2001 Category: Total Cholesterol (mg/dL) Desirable <200 Borderline High 200-239 High >=240 Category: LDL Cholesterol (mg/dL) Optimal <100 Near Optimal/Above Optimal 100-129 Borderline High 130-159 High 160-189 Very High >=190 Category: HDL Cholesterol (mg/dL) Low <40 High >=60 NCEP's Expert Panel on Blood Cholesterol in Children and Adolescents Category: Total Cholesterol (mg/dL) Desirable <170 Borderline High 170-199 High >=200 Category: LDL Cholesterol (mg/dL) Desirable <110 Borderline High 110-129 High >=130 us Chetna MCCONNELL LAB BLOOD ORDERABLES Final R esult [facility] [address] [place] [address], [place] * X-Ray Chest 1 View (02/24/2025 12:45 PM EDT) Anatomical Region Laterality Modality Body Computed Radiogr aphy 02/26/2025 3:08 PM EDT Impressions 02/26/2025 3:09 PM EDT Heart borderline enlarged. Mild nonspecific interstitial/peribronchial thickening both lungs with underaeration at the lung bases. No effusions or pneumothorax. If this radiology report contains a blank impression section, it is an incomplete radiology report. Please contact the interpreting radiologist or applicable radiology division as soon as possible to obtain the completed interpretation. Workstation ID: [id number] Narrative 02/26/2025 3:09 PM EDT COMPARISON: None FINDINGS AND Resulting Agency Comment [id number] Procedure Note Ector Mccauley MD - 02/26/2025 COMPARISON: None FINDINGS AND IMPRESSION: Heart borderline enlarged. Mild nonspecific interstitial/peribronchialthickening both lungs with underaeration at the lung bases. No effusionsor pneumothorax. If this radiology report contains a blank impression section, it is anincomplete radiology report. Please contact the interpreting radiologistor applicable radiology division as soon as possible to obtain thecompleted interpretation. Workstation ID: [id number] Jojo MCCONNELL IMG XR PROCEDURES Final Resul t * TSH (02/17/2025 10:41 AM EDT) TSH 1.340 0.280 - 3.890 uIU/mL 02/17/2025 11:34 AM EDT [facility] Blood Structure of peripheral vein / Unknown Venipuncture / Unknown 02/17/2025 10:41 AM EDT 02/17/2025 10:49 AM EDT Chaitanya Jefferson MD LAB BLOOD ORDERABLES Final Resu lt [facility] [address] [place] [address], [place] * (ABNORMAL) Hemoglobin A1c (02/17/2025 10:41 AM EDT) Hemoglobin A1C 6.3(H) <5.7 % 02/18/2025 2:55 AM EDT [facility] Comment: For someone without known diabetes, a hemoglobin A1c value between 5.7% and 6.4% is consistent with prediabetes and should be confirmed with a follow-up test. For someone with known diabetes, a value <7% indicates that their diabetes is well controlled. A1c targets should be individualized based on duration of diabetes, age, comorbid conditions, and other considerations. This assay result is consistent with an increased risk of diabetes. Currently, no consensus exists regarding use of hemoglobin A1c for diagnosis of diabetes for children. eAG (MG/DL) 134 mg/dL 02/18/2025 2:55 AM EDT [facility] eAG (MMOL/L) 7.4 mmol/L 02/18/2025 2:55 AM EDT [facility] Blood Structure of peripheral vein / Unknown Venipuncture / Unknown 02/17/2025 10:41 AM EDT 02/17/2025 10:49 AM EDT [facility] - 02/18/2025 2:55 AM EDT [facility] Received Date: Chaitanya Jefferson MD LAB BLOOD ORDERABLES Final Resu lt [facility] [address], [place] [address], [place] [facility] [address] [facility] 3rd [address], [place] [address], * (ABNORMAL) Comprehensive metabolic panel (02/17/2025 10:41 AM EDT) Pathologist [facility] NA 135 135 - 145 mmol/L 02/17/2025 11:34 AM EDT [facility] K 4.0 3.5 - 5.3 mmol/L 02/17/2025 11:34 AM EDT [facility] Cl 102 98 - 107 mmol/L 02/17/2025 11:34 AM [facility] CO2 21(L) 22 - 32 mmol/L 02/17/2025 11:34 AM [facility] Anion Gap 12 5 - 15 02/17/2025 11:34 AM [facility] Glucose 237(H) 65 - 99 mg/dL 02/17/2025 11:34 AM [facility] Creatinine 0.96 0.60 - 1.30 mg/dL 02/17/2025 11:34 AM [facility] Calcium 9.0 8.6 - 10.5 mg/dL 02/17/2025 11:34 AM [facility] Total Protein 7.3 6.0 - 8.0 g/dL 02/17/2025 11:34 AM [facility] Albumin 4.0 3.5 - 5.2 g/dL 02/17/2025 11:34 AM [facility] Bilirubin, Total 0.3 0.2 - 1.2 mg/dL 02/17/2025 11:34 AM [facility] Alkaline Phosphatase 90 35 - 129 U/L 02/17/2025 11:34 AM [facility] AST 24 10 - 40 U/L 02/17/2025 11:34 AM [facility] ALT 20 10 - 40 U/L 02/17/2025 11:34 AM [facility] BUN 13 7 - 23 mg/dL 02/17/2025 11:34 AM [facility] eGFR >90 >=60 mL/min/1. 73m2 02/17/2025 11:34 AM [facility] Comment:The estimated glomer ular filtration rate (eGFR) is calculated using a new formula developed by the NKF-ASN task force to eliminate race-based correction factors. The new formula uses serum/plasma creatinine, age, and gender to determine eGFR. A value below 60mls/min might indicate kidney disease and will be flagged. For additional information, see Lora et al, Am J Kidney Dis. 2021;79(2):268- 288, A Unifying Approach for GFR estimation: Recommendations of the NKF-ASN Task Force on Reassessing the Inclusion of Race in Diagnosing Kidney Disease . Globulin, Total 3.3 2.1 - 4.2 g/dL 02/17/2025 11:34 AM EDT [facility] A/G Ratio 1.2(L) 1.5 - 3.0 02/17/2025 11:34 AM EDT [facility] Blood Structure of peripheral vein / Unknown Venipuncture / Unknown 02/17/2025 10:41 AM EDT 02/17/2025 10:49 AM EDT us Chaitanya Jefferson MD LAB BLOOD ORDERABLES Final Resu lt [facility] [address] [place] [address], * Rapid COVID-19 for Surveillance - Psych/Admission (02/15/2025 8:49 PM EDT) PCR, SARS CoV-2 RNA Not Detected Not Detected [employer] 02/15/2025 10:08 PM EDT [facility] Comment:A Not Detected (Nega tive) test result is indicative of the absence of SARS-CoV-2 RNA at the level of LoD (Limit of Detection). A negative result does not rule out the possibility of COVID-19 and should not be used as the sole basis for treatment or patient management decisions. If COVID-19 is still suspected, based on exposure history together with other clinical findings, re-testing should be considered. Swab Specimen from nasopharyngeal structure / Unknown Non-Blood Collection / Unknown 02/15/2025 8:49 PM EDT 02/15/2025 8:49 PM EDT Narrative [facility] - 02/15/2025 10:08 PM EDT This test was developed, validated and its performance characteristics determined by [facility]. This test has not been cleared or approved by the U.S. Food and Drug Administration (FDA). FDA Policy for Diagnostic Tests for Coronavirus Disease-2019 during the Public Health Emergency issued August 14, 2019, is followed. 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 12/07/2021 Insurance [facility] MEDICA[facility] Advance Directives * Full Code (Latest Code Status on File) Date Activated Date Inactivated Comments 02/17/2025 9:37 AM 03/02/2025 7:25 PM * Full Code Date Activated Date Inactivated Comments 12/28/2021 11:37 PM 01/06/2022 3:28 PM * DNR/DNI Date Activated Date Inactivated Comments 12/28/2021 9:34 PM 12/28/2021 11:36 PM * Full Code Date Activated Date Inactivated Comments 12/07/2021 3:11 AM 12/16/2021 3:02 PM Healthcare Agents on File Name Relationship Healthcare Agent Relationsar p Communication Cynthia Lukas Mother Next of Kin Care Teams Credit Review Manager Relationship Specialty Start Date End Date Ref, Has No Pcp Or DO NOT EDIT THIS RECORD VIA PROVIDER ON THE FLY PCP - General Sewer And Drain Technician 02/15/25
--- NOTE | 2025-03-16 19:38 | PC.NURSE ---
Patient arrived at the unit at 7H18 PM, safety and skin checked were done, vital was: T 98.2, pls 80, BP 132/73, O2 was 96,7. Patient has abrasion left forearm, left elbow open area, left shoulder abrasion, right medial knee open area, left BKA. Admission note is pending.
--- NOTE | 2025-03-16 21:43 | PC.ADMIT ---
Pt was agitating to leave the unit, States I don't want to be here, just get transfer me back to where I am coming from . Pt was uncooperative with the admission procedure. He refused to sign any paper work and was yelling loud on the hallway. I will rather be in prison right now . He declined v/s and POC .
--- NOTE | 2025-03-17 08:51 | P.CONIM_ITS ---
History of Present Illness Data of Consult Service Date: 03/17/25 Requesting physician: Josselyn Grimes Primary Care Provider: Unknown Physician HPI Reason for consult: New external admission H&P This is a 59-year-old male with a history of diabetes, hyperlipidemia, left BKA admitted to . The hospitalists were asked to see him for routine medical consultation. Patient confirms a history of diabetes, reports he is no longer taking metformin due to previous history of elevated lactic acid. He has not been started on anything alternative, he checks his blood sugar once in a while. Previous nursing documentation indicated wounds, when inquired patient denied having any wounds and did not allow for assessment. He reports feeling fine with no active medical issues at this time. He denies having sob, chest pain, abdominal pain, coughing, fever, diarrhea. Review of Systems Review of Systems: Yes all other systems are reviewed and are negative Constitutional: Constitutional: Denies fever(s) Cardiovascular: Cardiovascular: Denies chest pain and Denies dyspnea Respiratory: Respiratory: Denies cough and Denies dyspnea Gastrointestinal: Gastrointestinal: Denies abdominal pain, Denies nausea and Denies vomiting PMFSH Medical History HLD (hyperlipidemia) Type 2 diabetes mellitus Surgical History Hx of left BKA Social History Household Members: None Housing: Homeless Do you presently have visiting nurse or other home services: No Patient Tobacco Use Status: Former Tobacco user Tobacco use type: Cigarette Smoked in Last 30 Days: No e-Cigarette/Vaping Use: Never Used Patient Interested in Nicotine Replacement: No Patient Given Instructions on How to Stop Smoking: No Second Hand Smoke Exposure: No Advance Directives: No Advance Directives Information Provided: No Do you have a plan to hurt others: No Plan Recently lost weight without trying: No Eating poorly because of decreased appetite: No Nutrition Risks: No Nutritional Risk Poor oral hygiene: No Meds Allergies Allergy/AdvReac Type Severity Reaction Status Date / Time sulfamethoxazole (From Allergy Severe Itching Verified 03/16/25 19:49 Bactrim) trimethoprim (From Bactrim) Allergy Severe Itching Verified 03/16/25 19:49 Active Medications: Current Medications Acetaminophen (Acetaminophen 325 Mg Tablet) 650 mg PO Q6H PRN PRN Reason: Headache/Pain, Scale 1-10 Al Hydroxide/Mg Hydroxide (Magnesium Hydrox/Alum Hydrox 30 Ml Oral.Susp) 30 ml PO Q6H PRN PRN Reason: Heartburn/Nausea Atorvastatin Calcium (Atorvastatin Calcium 20 Mg Tablet) 20 mg PO BEDTIME [facility] Bupropion HCl (Bupropion Hcl Xl 300 Mg Tab.Er.24h) 300 mg PO DAILY [facility] Dextrose (Dextrose 50 % 25 Gm/50 Ml Syringe) 25 gm IVPUSH Q15M PRN; Protocol PRN Reason: per Hypoglycemia Standing Ord. Fenofibrate (Fenofibrate,Micronized 134 Mg Capsule) 134 mg PO DAILY [facility] Gabapentin (Gabapentin 100 Mg Capsule) 200 mg PO BID [facility] Glucose (Glucose Gel 15 Gm Gel..Gram.) 15 gm PO Q15M PRN; Protocol PRN Reason: per Hypoglycemia Standing Ord. Hydroxyzine HCl (Hydroxyzine Hcl 25 Mg Tablet) 25 mg PO Q6H PRN PRN Reason: mild anxiety Insulin Human Lispro (Insulin Lispro 100 Unit/Ml 3 Ml Vial) 0 unit SUBCUT QIDACHS [facility]; Protocol Last Admin: 03/16/25 21:37 Dose: Not Given Magnesium Hydroxide (Milk Of Magnesia 30 Ml Oral.Susp) 30 ml PO DAILY PRN PRN Reason: Constipation Nicotine (Nicotine 21 Mg Patch.Td24) 21 mg TRANSDERMA DAILY PRN PRN Reason: nicotine craving Nicotine Polacrilex (Nicotine Polacrilex 2 Mg Gum) 2 mg BUCCAL Q2H PRN PRN Reason: Nicotine Cravings Olanzapine (Olanzapine 5 Mg Tablet) 5 mg PO BID PRN PRN Reason: agitation Sertraline HCl (Sertraline Hcl 50 Mg Tablet) 50 mg PO DAILY [facility] Sertraline HCl (Sertraline Hcl 100 Mg Tablet) 100 mg PO DAILY [facility] Trazodone HCl (Trazodone Hcl 50 Mg Tablet) 50 mg PO BEDTIME MRX1 PRN PRN Reason: Insomnia Home Medications ?Medication ?Instructions ?Recorded ?Confirmed ?Last Taken ?Type bupropion HCl 300 mg 24 hr tablet, 300 mg PO QAM 03/1703/17/25 Unknown History extended release fenofibrate 145 mg PO 1XD Cholesterol 03/17/25 Unknown History gabapentin 100 mg capsule 200 mg BID 03/17/25 03/17/25 Unknown History ibuprofen 600 mg tablet mg PO 1XD PRN Pain, Moderate 03/17/25 Unknown History metformin 500 mg tablet 500 mg 2XD Diabetes 03/17/25 03/17/25 Unknown History rosuvastatin 5 mg tablet 5 mg PO BEDTIME 03/17/25 Unknown History sertraline 100 mg tablet 100 mg PO DAILY 03/17/25 Unknown History sertraline 50 mg tablet 50 mg PO DAILY 03/17/2502/28 Unknown History Physical Exam Const: Other: Resting in bed, appears comfortable. Limited interaction, minimal responses to questions General: alert and awake Nutritional Appearance: obese Orientation/consciousness: patient oriented x3 Resp: Effort & Inspection: normal respiratory effort, able to speak in complete sentences, no respiratory distress and no use of accessory muscles Cardio: Rate: regular rate GI: Inspection: No distended Palpation (GI): nontender Neuro: General: patient oriented x3 and moves all extremities Cranial nerves: Yes CN's II-XII intact bilaterally Extrem: Other: left BKA Assessment and Plan (1) Routine medical exam: Status: Acute Plan This is a 59-year-old male with history of type 2 diabetes, hyperlipidemia, left BKA who admitted to T2DM no longer taking Metformin reportedly due to lactic acidosis consider check Hba1c unless available from outside facility recommend diabetic diet follow POCs, cover with SSI as needed depending on Hba1c and POCs can consider alternative diatic medication HLD Continue Lofibra, Lipitor There is no lab work to review. There are no active medical issues at this time.
--- NOTE | 2025-03-17 10:02 | HO.PSYADMNOT ---
HPI Date of Service: 03/17/25 Chief Complaint: F32.9 Sources of Information: patient interviewed, chart reviewed and crisis/core team assessment reviewed HPI Subjective Notes: Conditional Voluntary Narrative: 59 single male from [place] with a history of recurrent major depression. He currently resides in a motel. He is transferred from [facility] with increased depression and SI. He had a plan to OD on his medications. He has had recurrent hospitalizations over the past year maybe 10 after he had a below knee amputation due to chronic progressive osteomyelitis of his left leg (started with toes and progressed). Most recent hospitalization was in January. Patient reports depressed mood, hopelessness, worthlessness, interrupted sleep, anhedonia and SI. He feels isolated. His mother is in [place] with his brother and she's not doing well . He has no therapist or psychiatrist at this time. Past Psychiatric History: Multiple inpatient hospitalizations. OD in 2018. Medical Evaluation Reviewed: Yes [facility] Medical History HLD (hyperlipidemia) Type 2 diabetes mellitus Surgical History Hx of left BKA Social History: Single. Currently residing in a motel awaiting watch case polisher to help with finding a place for him. Process is taking a long time. He has extensive past legal history prior to getting sick with osteomyelitis. 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 Never . No children. P Substance History: Past history of cocaine use. Meds/Allergies Meds Home Medications ?Medication ?Instructions ?Recorded ?Confirmed ?Type bupropion HCl 300 mg 24 hr tablet, 300 mg PO QAM 03/17/25 03/17/25 History extended release fenofibrate 145 mg PO 1XD Cholesterol 03/17/25 03/17/25 History gabapentin 100 mg capsule 200 mg BID 03/17/25 03/17/25 History ibuprofen 600 mg tablet mg PO 1XD PRN Pain, Moderate 03/17/25 History metformin 500 mg tablet 500 mg 2XD Diabetes 03/17/25 03/17/25 History rosuvastatin 5 mg tablet 5 mg PO BEDTIME 03/17/25 03/17/25 History sertraline 100 mg tablet 100 mg PO DAILY 10/18/25 10/18/25 History sertraline 50 mg tablet 50 mg PO DAILY 03/17/25 03/17/25 History Allergies Allergies Allergy/AdvReac Type Severity Reaction Status Date / Time sulfamethoxazole (From Allergy Severe Itching Verified 03/16/25 19:49 Bactrim) trimethoprim (From Bactrim) Allergy Severe Itching Verified 03/16/25 19:49 Mental Status Exam Mental Status Exam Narrative: General appearance: Obese.?Laying in bed. Left BKA. Eye contact: poor. Musculoskeletal: Left BKA. Wheelchair. Manner/behavior: cooperative but guarded Speech:? Fluent, with normal rate, tone and volume. Language: No receptive or expressive language impairment? Mood: depressed. Affect: constricted range, congruent to mood and without lability? Thought process/associations: Circumstantial. Vague.?? Thought content:?No delusions or paranoia. Helplessness. Hallucinations: No auditory, visual or other hallucinations Suicidality/self-destructive behavior: SI but feels safe in hospital? ? Homicidally/violence: none.? Reliability: unclear.? ? Judgment: fair.? ? Insight: fair Cognition: Alert and oriented to time, place and person. Attention, concentration and fund of knowledge are normal.? Intelligence estimate: average.? Assessment & Plan Assessment & Plan (1) Routine medical exam: Status: Acute Code(s): Z00.00 - Encounter for general adult medical examination without abnormal findings (2) Depression, major, severe recurrence: Status: Acute Code(s): F33.2 - Major depressive disorder, recurrent severe without psychotic features Plan This is a 59-year-old male with history of type 2 diabetes, hyperlipidemia, left BKA who admitted to from outside hospital for increase depression and SI with plan to OD. He carries the diagnosis of MDD. Past history of substance use. Worsening depression since getting a left BKA for chronic osteomyelitis. PLAN: - Admit to inpatient psychiatry - CV - Collateral information from family and providers. - Milieu treatment and group therapy. - Medications: Continue home medications. Patient not interested in changing at this time. - Social work evaluation. - Disposition planning. Patient educated on: medication risk/benefits and medical condition Reason for continued inpatient stay Substantial Risk for: harm to self, inability to function and rapid decompensation Statement Statement: I have reviewed the history and physical and performed a pertinent examination on my patient. No changes have occurred unless specified. If the History and Physical was not performed prior to admission, the Hospitalist's service will be consulted for completing the admission physical. Time Spent With Patient Time: Total time managing care of this patient today ____ minutes.
[2025-03-17] MEDS: buPROPion HCl XL 300 MG TAB.ER.24H PO (10:11)
[2025-03-17 12:01] LABS: Glucose, Whole Blood 202 mg/dL (60-115)
[2025-03-17 17:10] LABS: Glucose, Whole Blood 189 mg/dL (60-115)
--- NOTE | 2025-03-18 08:11 | PC.NURSE ---
Late entry: Alexis refused his gabapentin on Wednesday morning, 03/17/25 (yesterday).
[2025-03-18 08:12] LABS: Glucose, Whole Blood 167 mg/dL (60-115)
[2025-03-18 09:20] LABS: Alanine Aminotransferase 40 U/L (0-40); Albumin Level 4.3 g/dL (3.5-5.0); Alkaline Phosphatase 64 U/L (39-117); Anion Gap 16 (12-20); Aspartate Amino Transferase 34 U/L (5-37); Blood Urea Nitrogen 11 mg/dL (9-16); Calcium 9.1 mg/dL (8.4-10.2); Carbon Dioxide 22 mmol/L (22-29); Chloride 103 mmol/L (96-108); Cholesterol 172 mg/dL (<200); Estimated Glomerular Filt Rate > 60; HDL Cholesterol 32 mg/dL (>40); Potassium 4.0 mmol/L (3.3-5.1); Sodium 137 mmol/L (135-145); Total Protein 7.7 g/dL (6.5-8.0); Triglycerides 377 mg/dL (<150)
[2025-03-18] MEDS: buPROPion HCl XL 300 MG TAB.ER.24H PO (09:32)
--- NOTE | 2025-03-18 09:32 | P.PNPSI_ITS ---
Subjective Subjective Date of Service: 03/18/25 Reason For Visit: F32.9 Interim History: Patient reports he is doing OK today. Has been out of his room on his wheelchair. Slept OK last night. Not interested in changing his psychotropics. Denies SI today. Denies AVH. Says he hopes to get referrals to PCP and OP therapy and psychiatry on discharge since he doesn't have services. He also says his Metformin was DC'd because his lactic acid was elevated and wants to see if there are alternatives. His BS have been upper 100's/low 200's. On ISS. Review of Systems Review of Systems Yes all other systems are reviewed and are negative Constitutional: Denies fever(s) Cardiovascular: Denies chest pain and Denies dyspnea Respiratory: Denies cough and Denies dyspnea Gastrointestinal: Denies abdominal pain, Denies nausea and Denies vomiting Mental Status Exam Mental Status Exam Narrative: General appearance: Obese.?Laying in bed. Left BKA. Eye contact: poor. Musculoskeletal: Left BKA. Wheelchair. Manner/behavior: cooperative but guarded Speech:? Fluent, with normal rate, tone and volume. Language: No receptive or expressive language impairment? Mood: depressed. Affect: constricted range, congruent to mood and without lability? Thought process/associations: Circumstantial. Vague.?? Thought content:?No delusions or paranoia. Helplessness. Hallucinations: No auditory, visual or other hallucinations Suicidality/self-destructive behavior: SI but feels safe in hospital? ? Homicidally/violence: none.? Reliability: unclear.? ? Judgment: fair.? ? Insight: fair Cognition: Alert and oriented to time, place and person. Attention, concentration and fund of knowledge are normal.? Intelligence estimate: average.? Diagnostics Labs 03/18/25 08:49 Labs: Laboratory Results - last 48 hr 03/17/25 03/17/25 03/18/25 11:53 17:05 08:08 Sodium Potassium Chloride Carbon Dioxide Anion Gap BUN Creatinine Estim Creat Clear Calc Estimated GFR POC Glucose 202 H 189 H 167 H Random Glucose Calcium Total Bilirubin AST ALT Alkaline Phosphatase Total Protein Albumin Triglycerides Cholesterol LDL Cholesterol, Calc HDL Cholesterol 03/18/25 08:49 Sodium 137 Potassium 4.0 Chloride 103 Carbon Dioxide 22 Anion Gap 16 BUN 11 Creatinine 0.84 Estim Creat Clear Calc TNP Estimated GFR > 60 POC Glucose Random Glucose 164 H Calcium 9.1 Total Bilirubin 0.5 AST 34 ALT 40 Alkaline Phosphatase 64 Total Protein 7.7 Albumin 4.3 Triglycerides 377 H Cholesterol 172 LDL Cholesterol, Calc 65 HDL Cholesterol 32 L Medications Medications Current Medications Acetaminophen (Acetaminophen 325 Mg Tablet) 650 mg PO Q6H PRN PRN Reason: Headache/Pain, Scale 1-10 Al Hydroxide/Mg Hydroxide (Magnesium Hydrox/Alum Hydrox 30 Ml Oral.Susp) 30 ml PO Q6H PRN PRN Reason: Heartburn/Nausea Atorvastatin Calcium (Atorvastatin Calcium 20 Mg Tablet) 20 mg PO BEDTIME [facility] Last Admin: 03/17/25 21:37 Dose: Not Given Bupropion HCl (Bupropion Hcl Xl 300 Mg Tab.Er.24h) 300 mg PO DAILY [facility] Last Admin: 03/17/25 10:11 Dose: 300 mg Dextrose (Dextrose 50 % 25 Gm/50 Ml Syringe) 25 gm IVPUSH Q15M PRN; Protocol PRN Reason: per Hypoglycemia Standing Ord. Fenofibrate (Fenofibrate,Micronized 134 Mg Capsule) 134 mg PO DAILY [facility] Last Admin: 03/17/25 10:13 Dose: 134 mg Gabapentin (Gabapentin 100 Mg Capsule) 200 mg PO BID [facility] Last Admin: 03/17/25 21:37 Dose: Not Given Glucose (Glucose Gel 15 Gm Gel..Gram.) 15 gm PO Q15M PRN; Protocol PRN Reason: per Hypoglycemia Standing Ord. Hydroxyzine HCl (Hydroxyzine Hcl 25 Mg Tablet) 25 mg PO Q6H PRN PRN Reason: mild anxiety Insulin Human Lispro (Insulin Lispro 100 Unit/Ml 3 Ml Vial) 0 unit SUBCUT QIDACHS [facility]; Protocol Last Admin: 03/17/25 20:23 Dose: Not Given Magnesium Hydroxide (Milk Of Magnesia 30 Ml Oral.Susp) 30 ml PO DAILY PRN PRN Reason: Constipation Nicotine (Nicotine 21 Mg Patch.Td24) 21 mg TRANSDERMA DAILY PRN PRN Reason: nicotine craving Nicotine Polacrilex (Nicotine Polacrilex 2 Mg Gum) 2 mg BUCCAL Q2H PRN PRN Reason: Nicotine Cravings Olanzapine (Olanzapine 5 Mg Tablet) 5 mg PO BID PRN PRN Reason: agitation Sertraline HCl (Sertraline Hcl 50 Mg Tablet) 50 mg PO DAILY [facility] Last Admin: 03/17/25 10:13 Dose: 50 mg Sertraline HCl (Sertraline Hcl 100 Mg Tablet) 100 mg PO DAILY [facility] Last Admin: 03/17/25 10:11 Dose: 100 mg Trazodone HCl (Trazodone Hcl 50 Mg Tablet) 50 mg PO BEDTIME MRX1 PRN PRN Reason: Insomnia Allergies Allergies Allergy/AdvReac Type Severity Reaction Status Date / Time sulfamethoxazole (From Allergy Severe Itching Verified 03/16/25 19:49 Bactrim) trimethoprim (From Bactrim) Allergy Severe Itching Verified 03/16/25 19:49 Assessment & Plan Assessment & Plan (1) Routine medical exam: Status: Acute Code(s): Z00.00 - Encounter for general adult medical examination without abnormal findings (2) Depression, major, severe recurrence: Status: Acute Code(s): F33.2 - Major depressive disorder, recurrent severe without psychotic features Plan This is a 59-year-old male with history of type 2 diabetes, hyperlipidemia, left BKA who admitted to from outside hospital for increase depression and SI with plan to OD. He carries the diagnosis of MDD. Past history of substance use. Worsening depression since getting a left BKA for chronic osteomyelitis. PLAN: - Admit to inpatient psychiatry - CV - Collateral information from family and providers. - Milieu treatment and group therapy. - Medications: Continue home medications. Patient not interested in changing at this time. - Social work evaluation. - Disposition planning. 03/18: Continue current management and treatment plan. Reason for continued inpatient stay Substantial Risk for: inability to function and rapid decompensation Time Spent With Patient Time: Total time managing care of this patient today ____ minutes.
[2025-03-18 09:34] LABS: Free T4 (Free Thyroxine) 1.00 ng/dL (0.71-1.85); Thyroid Stimulating Hormone 0.98 uIU/mL (0.32-4.0)
[2025-03-18 17:23] LABS: Glucose, Whole Blood 179 mg/dL (60-115)
[2025-03-19 08:09] LABS: Glucose, Whole Blood 163 mg/dL (60-115)
[2025-03-19] MEDS: buPROPion HCl XL 300 MG TAB.ER.24H PO (09:27)
--- NOTE | 2025-03-19 10:59 | HO.PSYCHPN ---
Subjective Subjective Date of Service: 03/19/25 Reason For Visit: F32.9 Interim History: met with patient; discussed with team Patient is still depressed; however all SI resolved. Patient discussed his history. . Patient reports there are periods of time when his mood has been good, even without medications; however he seems to decompensate with life's challenges. Patient not sure if current medication regimen is helpful at this time but agrees to increase Wellbutrin XL to 450 mg. Patient is anxious about being discharged to the streets as he struggles to navigate homelessness wheelchair-bound Discussed hx and denies hx of manic type episodes or behaviors Denies hx of trauma dad severe alcoholism; committed suicide with a gun (his brother found him) pt quit HS in 9th grade...Special classes...undiagnosed ADHD (discussed intuniv; pt will consider) was taking off Metformin for Lactic Acidosis... hx of incarceration high speed chases likely while abusing cocaine; A&B; no outstanding charges no Cocaine for past 5 months hx of homelessness Mental Status Exam Mental Status Exam Narrative: General appearance: Obese.? Hospital attire; unkempt. Left BKA. Eye contact: Adequate. Musculoskeletal: Left BKA. Wheelchair. Manner/behavior: cooperative, calm; mostly isolated Speech:? Fluent, with normal rate, tone and volume. Language: No receptive or expressive language impairment? Mood: depressed. Affect: constricted range, congruent to mood and without lability? Thought process/associations: Goal oriented; organized.?? Thought content: No SI Trying to be hopeful about housing; no delusional ideations Hallucinations: No AVH Suicidality: None Homicidally/violence: none.? Judgment/insight: Impaired but improving.? ? .? Diagnostics Labs 03/18/25 08:49 Labs: Laboratory Results - last 48 hr 03/17/25 03/17/25 03/18/25 11:53 17:05 08:08 Sodium Potassium Chloride Carbon Dioxide Anion Gap BUN Creatinine Estim Creat Clear Calc Estimated GFR POC Glucose 202 H 189 H 167 H Random Glucose Estimat Average Glucose Hemoglobin A1c % Calcium Total Bilirubin AST ALT Alkaline Phosphatase Total Protein Albumin Triglycerides Cholesterol LDL Cholesterol, Calc HDL Cholesterol TSH Free T4 03/18/25 03/18/25 03/19/25 08:49 17:02 08:05 Sodium 137 Potassium 4.0 Chloride 103 Carbon Dioxide 22 Anion Gap 16 BUN 11 Creatinine 0.84 Estim Creat Clear Calc TNP Estimated GFR > 60 POC Glucose 179 H 163 H Random Glucose 164 H Estimat Average Glucose 151 Hemoglobin A1c % 6.9 H Calcium 9.1 Total Bilirubin 0.5 AST 34 ALT 40 Alkaline Phosphatase 64 Total Protein 7.7 Albumin 4.3 Triglycerides 377 H Cholesterol 172 LDL Cholesterol, Calc 65 HDL Cholesterol 32 L TSH 0.98 Free T4 1.00 Medications Medications Current Medications Acetaminophen (Acetaminophen 325 Mg Tablet) 650 mg PO Q6H PRN PRN Reason: Headache/Pain, Scale 1-10 Al Hydroxide/Mg Hydroxide (Magnesium Hydrox/Alum Hydrox 30 Ml Oral.Susp) 30 ml PO Q6H PRN PRN Reason: Heartburn/Nausea Atorvastatin Calcium (Atorvastatin Calcium 20 Mg Tablet) 20 mg PO BEDTIME [facility] Last Admin: 03/18/25 20:16 Dose: 20 mg Bupropion HCl (Bupropion Hcl Xl 300 Mg Tab.Er.24h) 300 mg PO DAILY [facility] Last Admin: 03/19/25 09:27 Dose: 300 mg Dextrose (Dextrose 50 % 25 Gm/50 Ml Syringe) 25 gm IVPUSH Q15M PRN; Protocol PRN Reason: per Hypoglycemia Standing Ord. Fenofibrate (Fenofibrate,Micronized 134 Mg Capsule) 134 mg PO DAILY [facility] Last Admin: 03/19/25 09:27 Dose: 134 mg Gabapentin (Gabapentin 100 Mg Capsule) 200 mg PO BID [facility] Last Admin: 03/19/25 09:27 Dose: 200 mg Glucose (Glucose Gel 15 Gm Gel..Gram.) 15 gm PO Q15M PRN; Protocol PRN Reason: per Hypoglycemia Standing Ord. Hydroxyzine HCl (Hydroxyzine Hcl 25 Mg Tablet) 25 mg PO Q6H PRN PRN Reason: mild anxiety Insulin Human Lispro (Insulin Lispro 100 Unit/Ml 3 Ml Vial) 0 unit SUBCUT BID@0830,1630 [facility]; Protocol Last Admin: 03/19/25 08:28 Dose: Not Given Magnesium Hydroxide (Milk Of Magnesia 30 Ml Oral.Susp) 30 ml PO DAILY PRN PRN Reason: Constipation Nicotine (Nicotine 21 Mg Patch.Td24) 21 mg TRANSDERMA DAILY PRN PRN Reason: nicotine craving Nicotine Polacrilex (Nicotine Polacrilex 2 Mg Gum) 2 mg BUCCAL Q2H PRN PRN Reason: Nicotine Cravings Olanzapine (Olanzapine 5 Mg Tablet) 5 mg PO BID PRN PRN Reason: agitation Sertraline HCl (Sertraline Hcl 50 Mg Tablet) 50 mg PO DAILY [facility] Last Admin: 03/19/25 09:27 Dose: 50 mg Sertraline HCl (Sertraline Hcl 100 Mg Tablet) 100 mg PO DAILY [facility] Last Admin: 03/19/25 09:27 Dose: 100 mg Trazodone HCl (Trazodone Hcl 50 Mg Tablet) 50 mg PO BEDTIME MRX1 PRN PRN Reason: Insomnia Allergies Allergies Allergy/AdvReac Type Severity Reaction Status Date / Time sulfamethoxazole (From Allergy Severe Itching Verified 03/16/25 19:49 Bactrim) trimethoprim (From Bactrim) Allergy Severe Itching Verified 03/16/25 19:49 Assessment & Plan Assessment & Plan (1) Depression, major, severe recurrence: Status: Acute Code(s): F33.2 - Major depressive disorder, recurrent severe without psychotic features Assessment and Plan: MDD (2) Type 2 diabetes mellitus: Status: Acute Code(s): E11.9 - Type 2 diabetes mellitus without complications (3) Hx of left BKA: Status: Acute Code(s): Z89.512 - Acquired absence of left leg below knee Plan This is a 59-year-old male with history of type 2 diabetes, hyperlipidemia, left BKA who admitted to from outside hospital for increase depression and SI with plan to OD. He carries the diagnosis of MDD. Past history of substance use. Worsening depression since getting a left BKA for chronic osteomyelitis. Hospital course: 03/19 Patient is still depressed; however all SI resolved. Patient discussed his history. . Patient reports there are periods of time when his mood has been good, even without medications; however he seems to decompensate with life's challenges. Patient not sure if current medication regimen is helpful at this time but agrees to increase Wellbutrin XL to 450 mg. Patient is anxious about being discharged to the streets as he struggles to navigate homelessness wheelchair-bound Discussed hx and denies hx of manic type episodes or behaviors Denies hx of trauma dad severe alcoholism; committed suicide with a gun (his brother found him) pt quit HS in 9th grade...Special classes...undiagnosed ADHD (discussed intuniv; pt will consider) was taking off Metformin for Lactic Acidosis... hx of incarceration high speed chases likely while abusing cocaine; A&B; no outstanding charges no Cocaine for past 5 months hx of homelessness PLAN: - Admit to inpatient psychiatry - CV Increase Wellbutrin to 450 mg - Collateral information from family and providers. - Milieu treatment and group therapy. - Medications: Continue home medications. Patient not interested in changing at this time. - Social work evaluation. - Disposition planning. Patient educated on: diagnosis, medication risk/benefits, substance abuse and medical condition Informed Consent: understands Reason for continued inpatient stay Substantial Risk for: rapid decompensation Time Spent With Patient Time: Total time managing care of this patient today ____ minutes.
[2025-03-19] MEDS: buPROPion HCl XL 150 MG TAB.ER.24H PO (11:35)
--- NOTE | 2025-03-19 12:10 | HO.PM.IMPN ---
Subjective Subjective Date of Service: 03/19/25 Interval History: Patient is seen in follow up for diabetes, HLD. Patient is lying in bed, in no apparent distress. Blood sugars a low 100s. No blood pressures available for review. Denies any shortness of breath, dizziness, lightheadedness or any other concerning symptoms. Reports that he has been having issues with phantom pain, his BKA was over 1 year ago. He has no prosthetic. Patient does not have a primary care at this time. May benefit from [facility] for close follow up. Review of Systems Denies any shortness of breath, chest pain, palpitations, dizziness, lightheadedness, headaches, dysuria, abdominal pain or discomfort, nausea, vomiting or diarrhea. Denies chills, body aches, muscle aches, fatigue or weight loss. Physical Exam Exam: Exam: CONST: Alert and oriented, in NAD. Morbidly obese male. Oriented x4 HEENT: Normocephalic, atraumatic, MMM, Eyes clear, Neck supple RESP: Lungs clear, RRR even and regular HEART:,RRR, S1, S2. No edema GI:Abdomen Soft NT, ND. + BS times four :Deferred SKIN: Warm dry and intact, no visible lesions or rashes. Left BKA site well healed NEURO:CN II-XII Intact bilaterally, Sensation intact. Speech clear PSYCH: Normal affect Objective Data Active Medications Acetaminophen (Acetaminophen 325 Mg Tablet) 650 mg PO Q6H PRN PRN Reason: Headache/Pain, Scale 1-10 Al Hydroxide/Mg Hydroxide (Magnesium Hydrox/Alum Hydrox 30 Ml Oral.Susp) 30 ml PO Q6H PRN PRN Reason: Heartburn/Nausea Atorvastatin Calcium (Atorvastatin Calcium 20 Mg Tablet) 20 mg PO BEDTIME [facility] Last Admin: 03/18/25 20:16 Dose: 20 mg Documented By: PEDRO Bupropion HCl (Bupropion Hcl Xl 150 Mg Tab.Er.24h) 450 mg PO DAILY [facility] Dextrose (Dextrose 50 % 25 Gm/50 Ml Syringe) 25 gm IVPUSH Q15M PRN; Protocol PRN Reason: per Hypoglycemia Standing Ord. Fenofibrate (Fenofibrate,Micronized 134 Mg Capsule) 134 mg PO DAILY [facility] Last Admin: 03/19/25 09:27 Dose: 134 mg Documented By: OSWALDO Gabapentin (Gabapentin 100 Mg Capsule) 200 mg PO BID [facility] Last Admin: 03/19/25 09:27 Dose: 200 mg Documented By: OSWALDO Glucose (Glucose Gel 15 Gm Gel..Gram.) 15 gm PO Q15M PRN; Protocol PRN Reason: per Hypoglycemia Standing Ord. Hydroxyzine HCl (Hydroxyzine Hcl 25 Mg Tablet) 25 mg PO Q6H PRN PRN Reason: mild anxiety Insulin Human Lispro (Insulin Lispro 100 Unit/Ml 3 Ml Vial) 0 unit SUBCUT BID@0830,1630 [facility]; Protocol Last Admin: 03/19/25 08:28 Dose: Not Given Documented By: OSWALDO Non-Admin Reason: Patient Refused Comments: BG= 162 Magnesium Hydroxide (Milk Of Magnesia 30 Ml Oral.Susp) 30 ml PO DAILY PRN PRN Reason: Constipation Nicotine (Nicotine 21 Mg Patch.Td24) 21 mg TRANSDERMA DAILY PRN PRN Reason: nicotine craving Nicotine Polacrilex (Nicotine Polacrilex 2 Mg Gum) 2 mg BUCCAL Q2H PRN PRN Reason: Nicotine Cravings Olanzapine (Olanzapine 5 Mg Tablet) 5 mg PO BID PRN PRN Reason: agitation Sertraline HCl (Sertraline Hcl 50 Mg Tablet) 50 mg PO DAILY [facility] Last Admin: 03/19/25 09:27 Dose: 50 mg Documented By: OSWALDO Sertraline HCl (Sertraline Hcl 100 Mg Tablet) 100 mg PO DAILY [facility] Last Admin: 03/19/25 09:27 Dose: 100 mg Documented By: OSWALDO Trazodone HCl (Trazodone Hcl 50 Mg Tablet) 50 mg PO BEDTIME MRX1 PRN PRN Reason: Insomnia Labs 03/18/25 08:49 Labs: Laboratory Results - last 24 hr 03/18/25 03/19/25 17:02 08:05 POC Glucose 179 H 163 H Assessment and Plan (1) Type 2 diabetes mellitus: Status: Acute Plan This is a 59-year-old male with history of type 2 diabetes, obesity, hypertension, major depressive disorder, history of osteomyelitis and subsequent left BKA, hyperlipidemia, left BKA who admitted to for treatment of major depressive disorder and suicidal ideation. Major depressive disorder and suicidal ideation Treatment per psychiatric team T2DM Per patient's report Metformin stopped due to lactic acidosis Hemoglobin A1c noted to be 6.9 Recommended and discussed diabetic diet with patient, patient has large number of regular sugar packets and snacks his bedside. Discussed healthy choices Follow POCs, cover with SSI as needed Patient is a good candidate for GLP 1 as an outpatient HLD/HTN Continue Lofibra, Lipitor No blood pressures available for review. If blood pressures elevated consider starting ONEL or ARB. Morbid obesity Encourage healthy food choices. Thank you for allowing me to participate in the care of this patient. Will follow with you, please notify medical provider with any changes in condition or concerns. Quality Stroke Does the patient have a stroke diagnosis?: No VTE Prior VTE?: No VTE Risk Level:: Medical - low VTE Device Contraindication: Treatment Not Indicated VTE Drug Contraindication: Treatment Not Indicated
[2025-03-19 16:51] LABS: Glucose, Whole Blood 161 mg/dL (60-115)
[2025-03-20 08:09] LABS: Glucose, Whole Blood 177 mg/dL (60-115)
[2025-03-20] MEDS: buPROPion HCl XL 150 MG TAB.ER.24H 450 MG PO (08:52)
[2025-03-20 17:13] LABS: Glucose, Whole Blood 128 mg/dL (60-115)
--- NOTE | 2025-03-20 17:52 | HO.PSYCHPN ---
Subjective Subjective Date of Service: 03/20/25 Reason For Visit: F32.9 Interim History: met with pt; discussed with team Patient reports that he does not feel any better on increased Wellbutrin; however he agrees to continue with the dose to see if any symptoms improve. 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 However he agrees that groups are part of treatment and will start going. Mental Status Exam Mental Status Exam Narrative: General appearance: Obese.? Hospital attire; unkempt. Left BKA. Eye contact: Adequate. Musculoskeletal: Left BKA. Wheelchair. Manner/behavior: cooperative, calm; mostly isolated Speech:? Fluent, with normal rate, tone and volume. Language: No receptive or expressive language impairment? Mood: depressed. Affect: constricted range, congruent to mood and without lability? Thought process/associations: Goal oriented; organized.?? Thought content: No SI Trying to be hopeful about housing; no delusional ideations Hallucinations: No AVH Suicidality: None Homicidally/violence: none.? Judgment/insight: Impaired but improving.? ? .? Diagnostics Labs 03/18/25 08:49 Labs: Laboratory Results - last 48 hr 03/19/25 03/19/25 03/20/25 08:05 16:47 08:04 POC Glucose 163 H 161 H 177 H 03/20/25 17:10 POC Glucose 128 H Medications Medications Current Medications Acetaminophen (Acetaminophen 325 Mg Tablet) 650 mg PO Q6H PRN PRN Reason: Headache/Pain, Scale 1-10 Al Hydroxide/Mg Hydroxide (Magnesium Hydrox/Alum Hydrox 30 Ml Oral.Susp) 30 ml PO Q6H PRN PRN Reason: Heartburn/Nausea Atorvastatin Calcium (Atorvastatin Calcium 20 Mg Tablet) 20 mg PO BEDTIME [facility] Last Admin: 03/19/25 20:45 Dose: 20 mg Bupropion HCl (Bupropion Hcl Xl 150 Mg Tab.Er.24h) 450 mg PO DAILY [facility] Last Admin: 03/20/25 08:52 Dose: 450 mg Dextrose (Dextrose 50 % 25 Gm/50 Ml Syringe) 25 gm IVPUSH Q15M PRN; Protocol PRN Reason: per Hypoglycemia Standing Ord. Fenofibrate (Fenofibrate,Micronized 134 Mg Capsule) 134 mg PO DAILY [facility] Last Admin: 03/20/25 08:51 Dose: 134 mg Gabapentin (Gabapentin 100 Mg Capsule) 200 mg PO BID [facility] Last Admin: 03/20/25 08:53 Dose: Not Given Glucose (Glucose Gel 15 Gm Gel..Gram.) 15 gm PO Q15M PRN; Protocol PRN Reason: per Hypoglycemia Standing Ord. Hydroxyzine HCl (Hydroxyzine Hcl 25 Mg Tablet) 25 mg PO Q6H PRN PRN Reason: mild anxiety Insulin Human Lispro (Insulin Lispro 100 Unit/Ml 3 Ml Vial) 0 unit SUBCUT BID@0830,1630 [facility]; Protocol Last Admin: 03/20/25 17:17 Dose: Not Given Magnesium Hydroxide (Milk Of Magnesia 30 Ml Oral.Susp) 30 ml PO DAILY PRN PRN Reason: Constipation Nicotine (Nicotine 21 Mg Patch.Td24) 21 mg TRANSDERMA DAILY PRN PRN Reason: nicotine craving Nicotine Polacrilex (Nicotine Polacrilex 2 Mg Gum) 2 mg BUCCAL Q2H PRN PRN Reason: Nicotine Cravings Olanzapine (Olanzapine 5 Mg Tablet) 5 mg PO BID PRN PRN Reason: agitation Sertraline HCl (Sertraline Hcl 50 Mg Tablet) 50 mg PO DAILY [facility] Last Admin: 03/20/25 08:51 Dose: 50 mg Sertraline HCl (Sertraline Hcl 100 Mg Tablet) 100 mg PO DAILY [facility] Last Admin: 03/20/25 08:51 Dose: 100 mg Trazodone HCl (Trazodone Hcl 50 Mg Tablet) 50 mg PO BEDTIME MRX1 PRN PRN Reason: Insomnia Allergies Allergies Allergy/AdvReac Type Severity Reaction Status Date / Time sulfamethoxazole (From Allergy Severe Itching Verified 03/16/25 19:49 Bactrim) trimethoprim (From Bactrim) Allergy Severe Itching Verified 03/16/25 19:49 Assessment & Plan Assessment & Plan (1) Depression, major, severe recurrence: Status: Acute Code(s): F33.2 - Major depressive disorder, recurrent severe without psychotic features Assessment and Plan: MDD (2) Type 2 diabetes mellitus: Status: Acute Code(s): E11.9 - Type 2 diabetes mellitus without complications (3) Hx of left BKA: Status: Acute Code(s): Z89.512 - Acquired absence of left leg below knee Plan This is a 59-year-old male with history of type 2 diabetes, hyperlipidemia, left BKA who admitted to [facility] from outside hospital for increase depression and SI with plan to OD. He carries the diagnosis of MDD. Past history of substance use. Worsening depression since getting a left BKA for chronic osteomyelitis. Hospital course: 03/19 Patient is still depressed; however all SI resolved. Patient discussed his history. . Patient reports there are periods of time when his mood has been good, even without medications; however he seems to decompensate with life's challenges. Patient not sure if current medication regimen is helpful at this time but agrees to increase Wellbutrin XL to 450 mg. Patient is anxious about being discharged to the streets as he struggles to navigate homelessness wheelchair-bound Discussed hx and denies hx of manic type episodes or behaviors Denies hx of trauma dad severe alcoholism; committed suicide with a gun (his brother found him) pt quit HS in 9th grade...Special classes...undiagnosed ADHD (discussed intuniv; pt will consider) was taking off Metformin for Lactic Acidosis... hx of incarceration high speed chases likely while abusing cocaine; A&B; no outstanding charges no Cocaine for past 5 months hx of homelessness 03/20: Patient remains depressed; increased Wellbutrin thus far has not been helpful. Patient agrees to remain on it for awhile longer to see if can be effective PLAN: - Admit to inpatient psychiatry - CV Increase Wellbutrin to 450 mg - Collateral information from family and providers. - Milieu treatment and group therapy. - Medications: Continue home medications. Patient not interested in changing at this time. - Social work evaluation. - Disposition planning. Patient educated on: diagnosis, medication risk/benefits and therapeutic strategies Informed Consent: understands Reason for continued inpatient stay Substantial Risk for: rapid decompensation Time Spent With Patient Time: Total time managing care of this patient today ____ minutes.
[2025-03-21 08:27] LABS: Glucose, Whole Blood 166 mg/dL (60-115)
[2025-03-21] MEDS: buPROPion HCl XL 150 MG TAB.ER.24H 450 MG PO (08:28)
--- NOTE | 2025-03-21 15:54 | HO.PSYCHPN ---
Subjective Subjective Date of Service: 03/21/25 Reason For Visit: F32.9 Interim History: Met with patient; discussed with team Patient says that he has been feeling jittery in his arms and legs ever since Wellbutrin was increased. He says it is not really tolerable. Discussed medications further and patient feels that Wellbutrin 300 with Zoloft 150 has done nothing for his depression at all. Patient agrees that this medication regimen is not effective as his depression persists. Discussed options, risks/side effects and patient agrees to get off both Wellbutrin and Zoloft and instead be titrated on to Effexor. Discussed behavioral activation and need to go to groups which patient said he will definitely start doing Mental Status Exam Mental Status Exam Narrative: General appearance: Obese.? Hospital attire; unkempt. Left BKA. Eye contact: Adequate. Musculoskeletal: Left BKA. Wheelchair. Manner/behavior: cooperative, calm; mostly isolated Speech:? Fluent, with normal rate, tone and volume. Language: No receptive or expressive language impairment? Mood: depressed. Affect: constricted range, congruent to mood and without lability? Thought process/associations: Goal oriented; organized.?? Thought content: No SI Trying to be hopeful about housing; no delusional ideations Hallucinations: No AVH Suicidality: None Homicidally/violence: none.? Judgment/insight: Impaired but improving.? ? .? Diagnostics Labs 03/18/25 08:49 Labs: Laboratory Results - last 48 hr 03/19/25 03/20/25 03/20/25 16:47 08:04 17:10 POC Glucose 161 H 177 H 128 H 03/21/25 08:23 POC Glucose 166 H Medications Medications Current Medications Acetaminophen (Acetaminophen 325 Mg Tablet) 650 mg PO Q6H PRN PRN Reason: Headache/Pain, Scale 1-10 Al Hydroxide/Mg Hydroxide (Magnesium Hydrox/Alum Hydrox 30 Ml Oral.Susp) 30 ml PO Q6H PRN PRN Reason: Heartburn/Nausea Atorvastatin Calcium (Atorvastatin Calcium 20 Mg Tablet) 20 mg PO BEDTIME [facility] Last Admin: 03/20/25 21:44 Dose: Not Given Bupropion HCl (Bupropion Hcl Xl 150 Mg Tab.Er.24h) 450 mg PO DAILY [facility] Last Admin: 03/21/25 08:28 Dose: 450 mg Dextrose (Dextrose 50 % 25 Gm/50 Ml Syringe) 25 gm IVPUSH Q15M PRN; Protocol PRN Reason: per Hypoglycemia Standing Ord. Fenofibrate (Fenofibrate,Micronized 134 Mg Capsule) 134 mg PO DAILY [facility] Last Admin: 03/21/25 08:29 Dose: 134 mg Gabapentin (Gabapentin 100 Mg Capsule) 200 mg PO BID [facility] Last Admin: 03/21/25 09:05 Dose: Not Given Glucose (Glucose Gel 15 Gm Gel..Gram.) 15 gm PO Q15M PRN; Protocol PRN Reason: per Hypoglycemia Standing Ord. Hydroxyzine HCl (Hydroxyzine Hcl 25 Mg Tablet) 25 mg PO Q6H PRN PRN Reason: mild anxiety Ibuprofen (Ibuprofen 600 Mg Tablet) 600 mg PO Q8H PRN PRN Reason: leg pain Last Admin: 03/21/25 13:10 Dose: 600 mg Insulin Human Lispro (Insulin Lispro 100 Unit/Ml 3 Ml Vial) 0 unit SUBCUT BID@0830,1630 [facility]; Protocol Last Admin: 03/21/25 08:32 Dose: Not Given Magnesium Hydroxide (Milk Of Magnesia 30 Ml Oral.Susp) 30 ml PO DAILY PRN PRN Reason: Constipation Nicotine (Nicotine 21 Mg Patch.Td24) 21 mg TRANSDERMA DAILY PRN PRN Reason: nicotine craving Nicotine Polacrilex (Nicotine Polacrilex 2 Mg Gum) 2 mg BUCCAL Q2H PRN PRN Reason: Nicotine Cravings Olanzapine (Olanzapine 5 Mg Tablet) 5 mg PO BID PRN PRN Reason: agitation Psyllium Hydrophilic Mucilloid (Psyllium Seed 3.7 Gm Packet) 3.7 gm PO BEDTIME PRN PRN Reason: Constipation Sertraline HCl (Sertraline Hcl 50 Mg Tablet) 50 mg PO DAILY [facility] Last Admin: 03/21/25 08:27 Dose: 50 mg Sertraline HCl (Sertraline Hcl 100 Mg Tablet) 100 mg PO DAILY [facility] Last Admin: 03/21/25 08:27 Dose: 100 mg Trazodone HCl (Trazodone Hcl 50 Mg Tablet) 50 mg PO BEDTIME MRX1 PRN PRN Reason: Insomnia Allergies Allergies Allergy/AdvReac Type Severity Reaction Status Date / Time sulfamethoxazole (From Allergy Severe Itching Verified 03/16/25 19:49 Bactrim) trimethoprim (From Bactrim) Allergy Severe Itching Verified 03/16/25 19:49 Assessment & Plan Assessment & Plan (1) Depression, major, severe recurrence: Status: Acute Code(s): F33.2 - Major depressive disorder, recurrent severe without psychotic features Assessment and Plan: MDD (2) Type 2 diabetes mellitus: Status: Acute Code(s): E11.9 - Type 2 diabetes mellitus without complications (3) Hx of left BKA: Status: Acute Code(s): Z89.512 - Acquired absence of left leg below knee Plan This is a 59-year-old male with history of type 2 diabetes, hyperlipidemia, left BKA who admitted to from outside hospital for increase depression and SI with plan to OD. He carries the diagnosis of MDD. Past history of substance use. Worsening depression since getting a left BKA for chronic osteomyelitis. Hospital course: 03/19 Patient is still depressed; however all SI resolved. Patient discussed his history. . Patient reports there are periods of time when his mood has been good, even without medications; however he seems to decompensate with life's challenges. Patient not sure if current medication regimen is helpful at this time but agrees to increase Wellbutrin XL to 450 mg. Patient is anxious about being discharged to the streets as he struggles to navigate homelessness wheelchair-bound Discussed hx and denies hx of manic type episodes or behaviors Denies hx of trauma dad severe alcoholism; committed suicide with a gun (his brother found him) pt quit HS in 9th grade...Special classes...undiagnosed ADHD (discussed intuniv; pt will consider) was taking off Metformin for Lactic Acidosis... hx of incarceration high speed chases likely while abusing cocaine; A&B; no outstanding charges no Cocaine for past 5 months hx of homelessness 03/20: Patient remains depressed; increased Wellbutrin thus far has not been helpful. Patient agrees to remain on it for awhile longer to see if can be effective 03/21 remains depressed. Patient says that he has been feeling jittery in his arms and legs ever since Wellbutrin was increased. He says it is not really tolerable. Discussed medications further and patient feels that Wellbutrin 300 with Zoloft 150 has done nothing for his depression at all. Patient agrees that this medication regimen is not effective as his depression persists. Discussed options, risks/side effects and patient agrees to get off both Wellbutrin and Zoloft and instead be titrated on to Effexor. Discussed behavioral activation and need to go to groups which patient said he will definitely start doing PLAN: - Admit to inpatient psychiatry - CV Discontinue Wellbutrin Taper off Zoloft Start venlafaxine ER - Collateral information from family and providers. - Milieu treatment and group therapy. - Medications: Continue home medications. Patient not interested in changing at this time. - Social work evaluation. - Disposition planning. Patient educated on: diagnosis, medication risk/benefits and therapeutic strategies Informed Consent: understands Reason for continued inpatient stay Substantial Risk for: rapid decompensation Time Spent With Patient Time: Total time managing care of this patient today ____ minutes.
[2025-03-21 16:48] LABS: Glucose, Whole Blood 156 mg/dL (60-115)
[2025-03-22 08:00] VITALS: RESP 18
[2025-03-22 08:11] LABS: Glucose, Whole Blood 161 mg/dL (60-115)
[2025-03-22] MEDS: Venlafaxine HCl ER 37.5 MG CAP.ER.24H PO (08:54)
--- NOTE | 2025-03-22 09:58 | HO.PSYCHPN ---
Subjective Subjective Date of Service: 03/22/25 Reason For Visit: F32.9 Interim History: met with patient; discussed with team Patient reports mood is better; wants to continue with cross titration. Denies any SI. Patient said he just wants to remain on the unit until Wednesday when he gets his money so he can get a hotel. Patient said he will attend groups. Discussed medication he does not want Gabapentin Mental Status Exam Mental Status Exam Narrative: General appearance: Obese.? Casual attire; adequate hygiene and grooming;. Left BKA. Eye contact: Adequate. Musculoskeletal: Left BKA. Wheelchair. Manner/behavior: cooperative, appropriate, calm; going to groups Speech:? Fluent, with normal rate, tone and volume. Language: No receptive or expressive language impairment? Mood better Affect: constricted range, congruent to mood and without lability? Thought process/associations: Goal oriented; organized.?? Thought content: No SI Trying to be hopeful about housing; no delusional ideations Hallucinations: No AVH Suicidality: None Homicidally/violence: none.? Judgment/insight: fair ? .? Diagnostics Vital Signs (24Hr): Vital Signs - 24 hr 03/22/25 08:00 Respiratory Rate 18 Labs 03/18/25 08:49 Labs: Laboratory Results - last 48 hr 03/20/25 03/21/25 03/21/25 17:10 08:23 16:45 POC Glucose 128 H 166 H 156 H 03/22/25 08:07 POC Glucose 161 H Medications Medications Current Medications Acetaminophen (Acetaminophen 325 Mg Tablet) 650 mg PO Q6H PRN PRN Reason: Headache/Pain, Scale 1-10 Al Hydroxide/Mg Hydroxide (Magnesium Hydrox/Alum Hydrox 30 Ml Oral.Susp) 30 ml PO Q6H PRN PRN Reason: Heartburn/Nausea Atorvastatin Calcium (Atorvastatin Calcium 20 Mg Tablet) 20 mg PO DAILY@1700 [facility] Dextrose (Dextrose 50 % 25 Gm/50 Ml Syringe) 25 gm IVPUSH Q15M PRN; Protocol PRN Reason: per Hypoglycemia Standing Ord. Fenofibrate (Fenofibrate,Micronized 134 Mg Capsule) 134 mg PO DAILY [facility] Last Admin: 03/22/25 08:54 Dose: 134 mg Glucose (Glucose Gel 15 Gm Gel..Gram.) 15 gm PO Q15M PRN; Protocol PRN Reason: per Hypoglycemia Standing Ord. Hydroxyzine HCl (Hydroxyzine Hcl 25 Mg Tablet) 25 mg PO Q6H PRN PRN Reason: mild anxiety Ibuprofen (Ibuprofen 600 Mg Tablet) 600 mg PO Q8H PRN PRN Reason: leg pain Last Admin: 03/21/25 13:10 Dose: 600 mg Insulin Human Lispro (Insulin Lispro 100 Unit/Ml 3 Ml Vial) 0 unit SUBCUT BID@0830,1630 [facility]; Protocol Last Admin: 03/22/25 08:13 Dose: Not Given Magnesium Hydroxide (Milk Of Magnesia 30 Ml Oral.Susp) 30 ml PO DAILY PRN PRN Reason: Constipation Nicotine (Nicotine 21 Mg Patch.Td24) 21 mg TRANSDERMA DAILY PRN PRN Reason: nicotine craving Nicotine Polacrilex (Nicotine Polacrilex 2 Mg Gum) 2 mg BUCCAL Q2H PRN PRN Reason: Nicotine Cravings Psyllium Hydrophilic Mucilloid (Psyllium Seed 3.7 Gm Packet) 3.7 gm PO BEDTIME PRN PRN Reason: Constipation Sertraline HCl (Sertraline Hcl 100 Mg Tablet) 100 mg PO DAILY [facility] Last Admin: 03/22/25 08:54 Dose: 100 mg Trazodone HCl (Trazodone Hcl 50 Mg Tablet) 50 mg PO BEDTIME MRX1 PRN PRN Reason: Insomnia Venlafaxine HCl (Venlafaxine Hcl Er 37.5 Mg Cap.Er.24h) 37.5 mg PO DAILY [facility] Last Admin: 03/22/25 08:54 Dose: 37.5 mg Allergies Allergies Allergy/AdvReac Type Severity Reaction Status Date / Time sulfamethoxazole (From Allergy Severe Itching Verified 03/16/25 19:49 Bactrim) trimethoprim (From Bactrim) Allergy Severe Itching Verified 03/16/25 19:49 Assessment & Plan Assessment & Plan (1) Depression, major, severe recurrence: Status: Acute Code(s): F33.2 - Major depressive disorder, recurrent severe without psychotic features Assessment and Plan: MDD (2) Type 2 diabetes mellitus: Status: Acute Code(s): E11.9 - Type 2 diabetes mellitus without complications (3) Hx of left BKA: Status: Acute Code(s): Z89.512 - Acquired absence of left leg below knee Plan This is a 59-year-old male with history of type 2 diabetes, hyperlipidemia, left BKA who admitted to [facility] from outside hospital for increase depression and SI with plan to OD. He carries the diagnosis of MDD. Past history of substance use. Worsening depression since getting a left BKA for chronic osteomyelitis. Hospital course: 03/19 Patient is still depressed; however all SI resolved. Patient discussed his history. . Patient reports there are periods of time when his mood has been good, even without medications; however he seems to decompensate with life's challenges. Patient not sure if current medication regimen is helpful at this time but agrees to increase Wellbutrin XL to 450 mg. Patient is anxious about being discharged to the streets as he struggles to navigate homelessness wheelchair-bound Discussed hx and denies hx of manic type episodes or behaviors Denies hx of trauma dad severe alcoholism; committed suicide with a gun (his brother found him) pt quit HS in 9th grade...Special classes...undiagnosed ADHD (discussed intuniv; pt will consider) was taking off Metformin for Lactic Acidosis... hx of incarceration high speed chases likely while abusing cocaine; A&B; no outstanding charges no Cocaine for past 5 months hx of homelessness 03/20: Patient remains depressed; increased Wellbutrin thus far has not been helpful. Patient agrees to remain on it for awhile longer to see if can be effective 03/21 remains depressed. Patient says that he has been feeling jittery in his arms and legs ever since Wellbutrin was increased. He says it is not really tolerable. Discussed medications further and patient feels that Wellbutrin 300 with Zoloft 150 has done nothing for his depression at all. Patient agrees that this medication regimen is not effective as his depression persists. Discussed options, risks/side effects and patient agrees to get off both Wellbutrin and Zoloft and instead be titrated on to Effexor. Discussed behavioral activation and need to go to groups which patient said he will definitely start doing 03/22 Patient reports mood is better; wants to continue with cross titration. Denies any SI. Patient said he just wants to remain on the unit until Wednesday when he gets his money so he can get a hotel. Patient said he will attend groups. Discussed medication he does not want Gabapentin PLAN: - Admit to inpatient psychiatry - CV Discontinue Wellbutrin Taper off Zoloft Titrate venlafaxine ER - Collateral information from family and providers. - Milieu treatment and group therapy. - Medications: Continue home medications. Patient not interested in changing at this time. - Social work evaluation. - Disposition planning. Patient educated on: diagnosis and therapeutic strategies Informed Consent: understands Reason for continued inpatient stay Substantial Risk for: stable for discharge Time Spent With Patient Time: Total time managing care of this patient today ____ minutes.
[2025-03-22 17:18] LABS: Glucose, Whole Blood 100 mg/dL (60-115)
[2025-03-23 08:00] VITALS: PULSE 88; RESP 16; O2SAT 95
[2025-03-23 08:08] LABS: Glucose, Whole Blood 159 mg/dL (60-115)
[2025-03-23] MEDS: Venlafaxine HCl ER 75 MG CAP.ER.24H PO (08:55)
[2025-03-23] MEDS: Psyllium seed 3.7 GM PACKET PO (12:36)
[2025-03-23 16:49] LABS: Glucose, Whole Blood 123 mg/dL (60-115)
--- NOTE | 2025-03-23 17:16 | HO.PSYCHPN ---
Subjective Subjective Date of Service: 03/23/25 Reason For Visit: F32.9 Interim History: Met with patient; discussed with team Mood improving; tolerating cross titration. No SI and going to groups. Discussed dispo plans and options with patient Mental Status Exam Mental Status Exam Narrative: General appearance: Obese.? Casual attire; adequate hygiene and grooming;. Left BKA. Eye contact: Adequate. Musculoskeletal: Left BKA. Wheelchair. Manner/behavior: cooperative, appropriate, calm; going to groups Speech:? Fluent, with normal rate, tone and volume. Language: No receptive or expressive language impairment? Mood better Affect: constricted range, congruent to mood and without lability? Thought process/associations: Goal oriented; organized.?? Thought content: No SI Trying to be hopeful about housing; no delusional ideations Hallucinations: No AVH Suicidality: None Homicidally/violence: none.? Judgment/insight: fair ? .? Diagnostics Vital Signs (24Hr): Vital Signs - 24 hr 03/23/25 08:00 Pulse Rate 88 Respiratory Rate 16 Pulse Oximetry 95 Oxygen Delivery Method Room Air Labs 03/18/25 08:49 Labs: Laboratory Results - last 48 hr 03/22/25 03/22/25 03/23/25 08:07 17:08 08:04 POC Glucose 161 H 100 159 H 03/23/25 16:45 POC Glucose 123 H Medications Medications Current Medications Acetaminophen (Acetaminophen 325 Mg Tablet) 650 mg PO Q6H PRN PRN Reason: Headache/Pain, Scale 1-10 Al Hydroxide/Mg Hydroxide (Magnesium Hydrox/Alum Hydrox 30 Ml Oral.Susp) 30 ml PO Q6H PRN PRN Reason: Heartburn/Nausea Atorvastatin Calcium (Atorvastatin Calcium 20 Mg Tablet) 20 mg PO DAILY@1700 [facility] Last Admin: 03/22/25 17:29 Dose: 20 mg Dextrose (Dextrose 50 % 25 Gm/50 Ml Syringe) 25 gm IVPUSH Q15M PRN; Protocol PRN Reason: per Hypoglycemia Standing Ord. Fenofibrate (Fenofibrate,Micronized 134 Mg Capsule) 134 mg PO DAILY [facility] Last Admin: 03/23/25 08:54 Dose: 134 mg Glucose (Glucose Gel 15 Gm Gel..Gram.) 15 gm PO Q15M PRN; Protocol PRN Reason: per Hypoglycemia Standing Ord. Hydroxyzine HCl (Hydroxyzine Hcl 25 Mg Tablet) 25 mg PO Q6H PRN PRN Reason: mild anxiety Ibuprofen (Ibuprofen 600 Mg Tablet) 600 mg PO Q8H PRN PRN Reason: leg pain Last Admin: 03/21/25 13:10 Dose: 600 mg Insulin Human Lispro (Insulin Lispro 100 Unit/Ml 3 Ml Vial) 0 unit SUBCUT BID@0830,1630 [facility]; Protocol Last Admin: 03/23/25 08:55 Dose: Not Given Magnesium Hydroxide (Milk Of Magnesia 30 Ml Oral.Susp) 30 ml PO DAILY PRN PRN Reason: Constipation Nicotine (Nicotine 21 Mg Patch.Td24) 21 mg TRANSDERMA DAILY PRN PRN Reason: nicotine craving Nicotine Polacrilex (Nicotine Polacrilex 2 Mg Gum) 2 mg BUCCAL Q2H PRN PRN Reason: Nicotine Cravings Psyllium Hydrophilic Mucilloid (Psyllium Seed 3.7 Gm Packet) 3.7 gm PO DAILY PRN PRN Reason: Constipation Last Admin: 03/23/25 12:36 Dose: 3.7 gm Sertraline HCl (Sertraline Hcl 25 Mg Tablet) 25 mg PO DAILY [facility] Stop: 03/24/25 23:00 Trazodone HCl (Trazodone Hcl 50 Mg Tablet) 50 mg PO BEDTIME MRX1 PRN PRN Reason: Insomnia Venlafaxine HCl (Venlafaxine Hcl Er 75 Mg Cap.Er.24h) 75 mg PO DAILY [facility] Last Admin: 03/23/25 08:55 Dose: 75 mg Allergies Allergies Allergy/AdvReac Type Severity Reaction Status Date / Time sulfamethoxazole (From Allergy Severe Itching Verified 03/16/25 19:49 Bactrim) trimethoprim (From Bactrim) Allergy Severe Itching Verified 03/16/25 19:49 Assessment & Plan Assessment & Plan (1) Depression, major, severe recurrence: Status: Acute Code(s): F33.2 - Major depressive disorder, recurrent severe without psychotic features Assessment and Plan: MDD (2) Type 2 diabetes mellitus: Status: Acute Code(s): E11.9 - Type 2 diabetes mellitus without complications (3) Hx of left BKA: Status: Acute Code(s): Z89.512 - Acquired absence of left leg below knee Plan This is a 59-year-old male with history of type 2 diabetes, hyperlipidemia, left BKA who admitted to [facility] from outside hospital for increase depression and SI with plan to OD. He carries the diagnosis of MDD. Past history of substance use. Worsening depression since getting a left BKA for chronic osteomyelitis. Hospital course: 03/19 Patient is still depressed; however all SI resolved. Patient discussed his history. . Patient reports there are periods of time when his mood has been good, even without medications; however he seems to decompensate with life's challenges. Patient not sure if current medication regimen is helpful at this time but agrees to increase Wellbutrin XL to 450 mg. Patient is anxious about being discharged to the streets as he struggles to navigate homelessness wheelchair-bound Discussed hx and denies hx of manic type episodes or behaviors Denies hx of trauma dad severe alcoholism; committed suicide with a gun (his brother found him) pt quit HS in 9th grade...Special classes...undiagnosed ADHD (discussed intuniv; pt will consider) was taking off Metformin for Lactic Acidosis... hx of incarceration high speed chases likely while abusing cocaine; A&B; no outstanding charges no Cocaine for past 5 months hx of homelessness 03/20: Patient remains depressed; increased Wellbutrin thus far has not been helpful. Patient agrees to remain on it for awhile longer to see if can be effective 03/21 remains depressed. Patient says that he has been feeling jittery in his arms and legs ever since Wellbutrin was increased. He says it is not really tolerable. Discussed medications further and patient feels that Wellbutrin 300 with Zoloft 150 has done nothing for his depression at all. Patient agrees that this medication regimen is not effective as his depression persists. Discussed options, risks/side effects and patient agrees to get off both Wellbutrin and Zoloft and instead be titrated on to Effexor. Discussed behavioral activation and need to go to groups which patient said he will definitely start doing 03/22 Patient reports mood is better; wants to continue with cross titration. Denies any SI. Patient said he just wants to remain on the unit until Wednesday when he gets his money so he can get a hotel. Patient said he will attend groups. Discussed medication he does not want Gabapentin 03/23 continue tapering off and discontinuing Zoloft; continue titrating venlafaxine PLAN: - Admit to inpatient psychiatry - CV Discontinue Wellbutrin Taper off Zoloft venlafaxine ER 75mg daily; may titrate further - Collateral information from family and providers. - Milieu treatment and group therapy. - Social work evaluation. - Disposition planning. Patient educated on: diagnosis, medication risk/benefits and therapeutic strategies Informed Consent: understands Reason for continued inpatient stay Substantial Risk for: stable for discharge Time Spent With Patient Time: Total time managing care of this patient today ____ minutes.
[2025-03-24 08:22] LABS: Glucose, Whole Blood 150 mg/dL (60-115)
[2025-03-24] MEDS: Venlafaxine HCl ER 75 MG CAP.ER.24H PO (09:03)
--- NOTE | 2025-03-24 13:42 | P.PNPSI_ITS ---
Subjective Subjective Date of Service: 03/24/25 Reason For Visit: F32.9 Interim History: Keeping to self. In room. Patient reports feeling depressed and anxious; encouraged to leave room. raji SI/HI/VH/AH. He reports sleeping well last night. continue tx plan. Medication Compliance: Yes Side effects from medications: No Attending Groups: No Mental Status Exam Mental Status Exam Patient Appearance: Appropriate Patient Orientation: Person, Place, Time and Situation Level of Consciousness: Awake and Alert Patient Behavior: Appropriate and Cooperative Mood Description: Depressed Affect Description: Depressed Ability to Follow Directions: Good Speech Pattern: Clear Memory Description: Intact Hallucinations: None Delusions: Not Present Thought Process: Intact Thought Content: positive for Intact Diagnostics Labs 03/18/25 08:49 Labs: Laboratory Results - last 48 hr 03/22/25 03/23/25 03/23/25 17:08 08:04 16:45 POC Glucose 100 159 H 123 H 03/24/25 08:18 POC Glucose 150 H Medications Medications Current Medications Acetaminophen (Acetaminophen 325 Mg Tablet) 650 mg PO Q6H PRN PRN Reason: Headache/Pain, Scale 1-10 Al Hydroxide/Mg Hydroxide (Magnesium Hydrox/Alum Hydrox 30 Ml Oral.Susp) 30 ml PO Q6H PRN PRN Reason: Heartburn/Nausea Atorvastatin Calcium (Atorvastatin Calcium 20 Mg Tablet) 20 mg PO DAILY@1700 [facility] Last Admin: 03/23/25 17:47 Dose: 20 mg Dextrose (Dextrose 50 % 25 Gm/50 Ml Syringe) 25 gm IVPUSH Q15M PRN; Protocol PRN Reason: per Hypoglycemia Standing Ord. Fenofibrate (Fenofibrate,Micronized 134 Mg Capsule) 134 mg PO DAILY [facility] Last Admin: 03/24/25 09:04 Dose: 134 mg Glucose (Glucose Gel 15 Gm Gel..Gram.) 15 gm PO Q15M PRN; Protocol PRN Reason: per Hypoglycemia Standing Ord. Hydroxyzine HCl (Hydroxyzine Hcl 25 Mg Tablet) 25 mg PO Q6H PRN PRN Reason: mild anxiety Ibuprofen (Ibuprofen 600 Mg Tablet) 600 mg PO Q8H PRN PRN Reason: leg pain Last Admin: 03/21/25 13:10 Dose: 600 mg Insulin Human Lispro (Insulin Lispro 100 Unit/Ml 3 Ml Vial) 0 unit SUBCUT BID@0830,1630 [facility]; Protocol Last Admin: 03/24/25 09:03 Dose: Not Given Magnesium Hydroxide (Milk Of Magnesia 30 Ml Oral.Susp) 30 ml PO DAILY PRN PRN Reason: Constipation Nicotine (Nicotine 21 Mg Patch.Td24) 21 mg TRANSDERMA DAILY PRN PRN Reason: nicotine craving Nicotine Polacrilex (Nicotine Polacrilex 2 Mg Gum) 2 mg BUCCAL Q2H PRN PRN Reason: Nicotine Cravings Psyllium Hydrophilic Mucilloid (Psyllium Seed 3.7 Gm Packet) 3.7 gm PO DAILY PRN PRN Reason: Constipation Last Admin: 03/23/25 12:36 Dose: 3.7 gm Sertraline HCl (Sertraline Hcl 25 Mg Tablet) 25 mg PO DAILY [facility] Stop: 03/24/25 23:00 Last Admin: 03/24/25 09:03 Dose: 25 mg Trazodone HCl (Trazodone Hcl 50 Mg Tablet) 50 mg PO BEDTIME MRX1 PRN PRN Reason: Insomnia Venlafaxine HCl (Venlafaxine Hcl Er 75 Mg Cap.Er.24h) 75 mg PO DAILY [facility] Last Admin: 03/24/25 09:03 Dose: 75 mg Allergies Allergies Allergy/AdvReac Type Severity Reaction Status Date / Time sulfamethoxazole (From Allergy Severe Itching Verified 03/16/25 19:49 Bactrim) trimethoprim (From Bactrim) Allergy Severe Itching Verified 03/16/25 19:49 Assessment & Plan Assessment & Plan (1) Depression, major, severe recurrence: Status: Acute Code(s): F33.2 - Major depressive disorder, recurrent severe without psychotic features Assessment and Plan: MDD (2) Type 2 diabetes mellitus: Status: Acute Code(s): E11.9 - Type 2 diabetes mellitus without complications (3) Hx of left BKA: Status: Acute Code(s): Z89.512 - Acquired absence of left leg below knee Plan This is a 59-year-old male with history of type 2 diabetes, hyperlipidemia, left BKA who admitted to from outside hospital for increase depression and SI with plan to OD. He carries the diagnosis of MDD. Past history of substance use. Worsening depression since getting a left BKA for chronic osteomyelitis. Hospital course: 03/19 Patient is still depressed; however all SI resolved. Patient discussed his history. . Patient reports there are periods of time when his mood has been good, even without medications; however he seems to decompensate with life's challenges. Patient not sure if current medication regimen is helpful at this time but agrees to increase Wellbutrin XL to 450 mg. Patient is anxious about being discharged to the streets as he struggles to navigate homelessness wheelchair-bound Discussed hx and denies hx of manic type episodes or behaviors Denies hx of trauma dad severe alcoholism; committed suicide with a gun (his brother found him) pt quit HS in 9th grade...Special classes...undiagnosed ADHD (discussed intuniv; pt will consider) was taking off Metformin for Lactic Acidosis... hx of incarceration high speed chases likely while abusing cocaine; A&B; no outstanding charges no Cocaine for past 5 months hx of homelessness 03/20: Patient remains depressed; increased Wellbutrin thus far has not been helpful. Patient agrees to remain on it for awhile longer to see if can be effective 03/21 remains depressed. Patient says that he has been feeling jittery in his arms and legs ever since Wellbutrin was increased. He says it is not really tolerable. Discussed medications further and patient feels that Wellbutrin 300 with Zoloft 150 has done nothing for his depression at all. Patient agrees that this medication regimen is not effective as his depression persists. Discussed options, risks/side effects and patient agrees to get off both Wellbutrin and Zoloft and instead be titrated on to Effexor. Discussed behavioral activation and need to go to groups which patient said he will definitely start doing 03/22 Patient reports mood is better; wants to continue with cross titration. Denies any SI. Patient said he just wants to remain on the unit until Wednesday when he gets his money so he can get a hotel. Patient said he will attend groups. Discussed medication he does not want Gabapentin 03/23 continue tapering off and discontinuing Zoloft; continue titrating venlafaxine 03/24: continue tx plan. PLAN: - Admit to inpatient psychiatry - CV Discontinue Wellbutrin Taper off Zoloft venlafaxine ER 75mg daily; may titrate further - Collateral information from family and providers. - Milieu treatment and group therapy. - Social work evaluation. - Disposition planning. Patient educated on: diagnosis, medication risk/benefits and therapeutic strategies Reason for continued inpatient stay Substantial Risk for: med/psych decompensation Time Spent With Patient Time: Total time managing care of this patient today _15___ minutes.
[2025-03-24 17:05] LABS: Glucose, Whole Blood 147 mg/dL (60-115)
[2025-03-25 07:53] LABS: Glucose, Whole Blood 158 mg/dL (60-115)
[2025-03-25] MEDS: Venlafaxine HCl ER 75 MG CAP.ER.24H PO (08:21)
--- NOTE | 2025-03-25 11:41 | HO.PSYCHPN ---
Subjective Subjective Date of Service: 03/25/25 Reason For Visit: F32.9 Interim History: Sleeping most of morning. Patient continues to report feeling depressed and anxious; pt stated, I feel this way everyday . encouraged to leave room; pt reports he plans on leaving room today rather than isolating. raji SI/HI/VH/AH. continue tx plan. Medication Compliance: Yes Side effects from medications: No Mental Status Exam Mental Status Exam Patient Appearance: Appropriate Patient Orientation: Person, Place, Time and Situation Level of Consciousness: Awake and Alert Patient Behavior: Appropriate and Cooperative Mood Description: Depressed Affect Description: Depressed Ability to Follow Directions: Good Speech Pattern: Clear Memory Description: Intact Hallucinations: None Delusions: Not Present Thought Process: Intact Thought Content: positive for Intact Diagnostics Labs 03/18/25 08:49 Labs: Laboratory Results - last 48 hr 03/23/25 03/24/25 03/24/25 16:45 08:18 16:59 POC Glucose 123 H 150 H 147 H 03/25/25 07:49 POC Glucose 158 H Medications Medications Current Medications Acetaminophen (Acetaminophen 325 Mg Tablet) 650 mg PO Q6H PRN PRN Reason: Headache/Pain, Scale 1-10 Al Hydroxide/Mg Hydroxide (Magnesium Hydrox/Alum Hydrox 30 Ml Oral.Susp) 30 ml PO Q6H PRN PRN Reason: Heartburn/Nausea Atorvastatin Calcium (Atorvastatin Calcium 20 Mg Tablet) 20 mg PO DAILY@1700 [facility] Last Admin: 03/24/25 17:51 Dose: 20 mg Dextrose (Dextrose 50 % 25 Gm/50 Ml Syringe) 25 gm IVPUSH Q15M PRN; Protocol PRN Reason: per Hypoglycemia Standing Ord. Fenofibrate (Fenofibrate,Micronized 134 Mg Capsule) 134 mg PO DAILY [facility] Last Admin: 03/25/25 08:22 Dose: 134 mg Glucose (Glucose Gel 15 Gm Gel..Gram.) 15 gm PO Q15M PRN; Protocol PRN Reason: per Hypoglycemia Standing Ord. Hydroxyzine HCl (Hydroxyzine Hcl 25 Mg Tablet) 25 mg PO Q6H PRN PRN Reason: mild anxiety Ibuprofen (Ibuprofen 600 Mg Tablet) 600 mg PO Q8H PRN PRN Reason: leg pain Last Admin: 03/21/25 13:10 Dose: 600 mg Insulin Human Lispro (Insulin Lispro 100 Unit/Ml 3 Ml Vial) 0 unit SUBCUT BID@0830,1630 [facility]; Protocol Last Admin: 03/25/25 09:10 Dose: Not Given Magnesium Hydroxide (Milk Of Magnesia 30 Ml Oral.Susp) 30 ml PO DAILY PRN PRN Reason: Constipation Nicotine (Nicotine 21 Mg Patch.Td24) 21 mg TRANSDERMA DAILY PRN PRN Reason: nicotine craving Nicotine Polacrilex (Nicotine Polacrilex 2 Mg Gum) 2 mg BUCCAL Q2H PRN PRN Reason: Nicotine Cravings Psyllium Hydrophilic Mucilloid (Psyllium Seed 3.7 Gm Packet) 3.7 gm PO DAILY PRN PRN Reason: Constipation Last Admin: 03/23/25 12:36 Dose: 3.7 gm Trazodone HCl (Trazodone Hcl 50 Mg Tablet) 50 mg PO BEDTIME MRX1 PRN PRN Reason: Insomnia Venlafaxine HCl (Venlafaxine Hcl Er 75 Mg Cap.Er.24h) 75 mg PO DAILY [facility] Last Admin: 03/25/25 08:21 Dose: 75 mg Allergies Allergies Allergy/AdvReac Type Severity Reaction Status Date / Time sulfamethoxazole (From Allergy Severe Itching Verified 03/16/25 19:49 Bactrim) trimethoprim (From Bactrim) Allergy Severe Itching Verified 03/16/25 19:49 Assessment & Plan Assessment & Plan (1) Depression, major, severe recurrence: Status: Acute Code(s): F33.2 - Major depressive disorder, recurrent severe without psychotic features Assessment and Plan: MDD (2) Type 2 diabetes mellitus: Status: Acute Code(s): E11.9 - Type 2 diabetes mellitus without complications (3) Hx of left BKA: Status: Acute Code(s): Z89.512 - Acquired absence of left leg below knee Plan This is a 59-year-old male with history of type 2 diabetes, hyperlipidemia, left BKA who admitted to from outside hospital for increase depression and SI with plan to OD. He carries the diagnosis of MDD. Past history of substance use. Worsening depression since getting a left BKA for chronic osteomyelitis. Hospital course: 03/19 Patient is still depressed; however all SI resolved. Patient discussed his history. . Patient reports there are periods of time when his mood has been good, even without medications; however he seems to decompensate with life's challenges. Patient not sure if current medication regimen is helpful at this time but agrees to increase Wellbutrin XL to 450 mg. Patient is anxious about being discharged to the streets as he struggles to navigate homelessness wheelchair-bound Discussed hx and denies hx of manic type episodes or behaviors Denies hx of trauma dad severe alcoholism; committed suicide with a gun (his brother found him) pt quit HS in 9th grade...Special classes...undiagnosed ADHD (discussed intuniv; pt will consider) was taking off Metformin for Lactic Acidosis... hx of incarceration high speed chases likely while abusing cocaine; A&B; no outstanding charges no Cocaine for past 5 months hx of homelessness 03/20: Patient remains depressed; increased Wellbutrin thus far has not been helpful. Patient agrees to remain on it for awhile longer to see if can be effective 03/21 remains depressed. Patient says that he has been feeling jittery in his arms and legs ever since Wellbutrin was increased. He says it is not really tolerable. Discussed medications further and patient feels that Wellbutrin 300 with Zoloft 150 has done nothing for his depression at all. Patient agrees that this medication regimen is not effective as his depression persists. Discussed options, risks/side effects and patient agrees to get off both Wellbutrin and Zoloft and instead be titrated on to Effexor. Discussed behavioral activation and need to go to groups which patient said he will definitely start doing 03/22 Patient reports mood is better; wants to continue with cross titration. Denies any SI. Patient said he just wants to remain on the unit until Wednesday when he gets his money so he can get a hotel. Patient said he will attend groups. Discussed medication he does not want Gabapentin 03/23 continue tapering off and discontinuing Zoloft; continue titrating venlafaxine 03/24: continue tx plan. 03/25: Sleeping most of morning. Patient continues to report feeling depressed and anxious; pt stated, I feel this way everyday . encouraged to leave room; pt reports he plans on leaving room today rather than isolating. deneis SI/HI/VH/AH. continue tx plan. PLAN: - Admit to inpatient psychiatry - CV Discontinue Wellbutrin Taper off Zoloft venlafaxine ER 75mg daily; may titrate further - Collateral information from family and providers. - Milieu treatment and group therapy. - Social work evaluation. - Disposition planning. Patient educated on: diagnosis, medication risk/benefits and therapeutic strategies Reason for continued inpatient stay Substantial Risk for: med/psych decompensation Time Spent With Patient Time: Total time managing care of this patient today _15___ minutes.
[2025-03-25 16:30] LABS: Glucose, Whole Blood 120 mg/dL (60-115)
[2025-03-25 20:00] VITALS: RESP 16
[2025-03-26 07:54] LABS: Glucose, Whole Blood 151 mg/dL (60-115)
[2025-03-26] MEDS: Venlafaxine HCl ER 75 MG CAP.ER.24H PO (09:15)
[2025-03-26 16:54] LABS: Glucose, Whole Blood 165 mg/dL (60-115)
--- NOTE | 2025-03-26 17:02 | P.PNPSI_ITS ---
Subjective Subjective Date of Service: 03/26/25 Reason For Visit: F32.9 Interim History: Met with patient; discussed with team; reviewed chart pt reports doing better though still with depression. Discussed increasing Venlafaxine; pt currently ambivalent. Mental Status Exam Mental Status Exam Narrative: General appearance: Obese.? Casual attire; adequate hygiene and grooming;. Left BKA. Eye contact: Adequate. Musculoskeletal: Left BKA. Wheelchair. Manner/behavior: cooperative, appropriate, calm; going to groups Speech:? Fluent, with normal rate, tone and volume. Language: No receptive or expressive language impairment? Mood ok...better Affect: constricted range, congruent to mood and without lability? Thought process/associations: Goal oriented; organized.?? Thought content: No SI Trying to be hopeful about housing; no delusional ideations Hallucinations: No AVH Suicidality: None Homicidally/violence: none.? Judgment/insight: fair ? .? Diagnostics Vital Signs (24Hr): Vital Signs - 24 hr 03/25/25 20:00 Respiratory Rate 16 Labs 03/18/25 08:49 Labs: Laboratory Results - last 48 hr 03/24/25 03/25/25 03/25/25 16:59 07:49 16:26 POC Glucose 147 H 158 H 120 H 03/26/25 03/26/25 07:50 16:48 POC Glucose 151 H 165 H Medications Medications Current Medications Acetaminophen (Acetaminophen 325 Mg Tablet) 650 mg PO Q6H PRN PRN Reason: Headache/Pain, Scale 1-10 Al Hydroxide/Mg Hydroxide (Magnesium Hydrox/Alum Hydrox 30 Ml Oral.Susp) 30 ml PO Q6H PRN PRN Reason: Heartburn/Nausea Atorvastatin Calcium (Atorvastatin Calcium 20 Mg Tablet) 20 mg PO DAILY@1700 [facility] Last Admin: 03/25/25 16:33 Dose: 20 mg Dextrose (Dextrose 50 % 25 Gm/50 Ml Syringe) 25 gm IVPUSH Q15M PRN; Protocol PRN Reason: per Hypoglycemia Standing Ord. Fenofibrate (Fenofibrate,Micronized 134 Mg Capsule) 134 mg PO DAILY [facility] Last Admin: 03/26/25 09:15 Dose: 134 mg Glucose (Glucose Gel 15 Gm Gel..Gram.) 15 gm PO Q15M PRN; Protocol PRN Reason: per Hypoglycemia Standing Ord. Hydroxyzine HCl (Hydroxyzine Hcl 25 Mg Tablet) 25 mg PO Q6H PRN PRN Reason: mild anxiety Ibuprofen (Ibuprofen 600 Mg Tablet) 600 mg PO Q8H PRN PRN Reason: leg pain Last Admin: 03/21/25 13:10 Dose: 600 mg Insulin Human Lispro (Insulin Lispro 100 Unit/Ml 3 Ml Vial) 0 unit SUBCUT BID@0830,1630 [facility]; Protocol Last Admin: 03/26/25 08:50 Dose: Not Given Magnesium Hydroxide (Milk Of Magnesia 30 Ml Oral.Susp) 30 ml PO DAILY PRN PRN Reason: Constipation Nicotine (Nicotine 21 Mg Patch.Td24) 21 mg TRANSDERMA DAILY PRN PRN Reason: nicotine craving Nicotine Polacrilex (Nicotine Polacrilex 2 Mg Gum) 2 mg BUCCAL Q2H PRN PRN Reason: Nicotine Cravings Psyllium Hydrophilic Mucilloid (Psyllium Seed 3.7 Gm Packet) 3.7 gm PO DAILY PRN PRN Reason: Constipation Last Admin: 03/23/25 12:36 Dose: 3.7 gm Trazodone HCl (Trazodone Hcl 50 Mg Tablet) 50 mg PO BEDTIME MRX1 PRN PRN Reason: Insomnia Venlafaxine HCl (Venlafaxine Hcl Er 75 Mg Cap.Er.24h) 75 mg PO DAILY [facility] Last Admin: 03/26/25 09:15 Dose: 75 mg Allergies Allergies Allergy/AdvReac Type Severity Reaction Status Date / Time sulfamethoxazole (From Allergy Severe Itching Verified 03/16/25 19:49 Bactrim) trimethoprim (From Bactrim) Allergy Severe Itching Verified 03/16/25 19:49 Assessment & Plan Assessment & Plan (1) Depression, major, severe recurrence: Status: Acute Code(s): F33.2 - Major depressive disorder, recurrent severe without psychotic features Assessment and Plan: MDD (2) Type 2 diabetes mellitus: Status: Acute Code(s): E11.9 - Type 2 diabetes mellitus without complications (3) Hx of left BKA: Status: Acute Code(s): Z89.512 - Acquired absence of left leg below knee Plan This is a 59-year-old male with history of type 2 diabetes, hyperlipidemia, left BKA who admitted to from outside hospital for increase depression and SI with plan to OD. He carries the diagnosis of MDD. Past history of substance use. Worsening depression since getting a left BKA for chronic osteomyelitis. Hospital course: 03/19 Patient is still depressed; however all SI resolved. Patient discussed his history. . Patient reports there are periods of time when his mood has been good, even without medications; however he seems to decompensate with life's challenges. Patient not sure if current medication regimen is helpful at this time but agrees to increase Wellbutrin XL to 450 mg. Patient is anxious about being discharged to the streets as he struggles to navigate homelessness wheelchair-bound Discussed hx and denies hx of manic type episodes or behaviors Denies hx of trauma dad severe alcoholism; committed suicide with a gun (his brother found him) pt quit HS in 9th grade...Special classes...undiagnosed ADHD (discussed intuniv; pt will consider) was taking off Metformin for Lactic Acidosis... hx of incarceration high speed chases likely while abusing cocaine; A&B; no outstanding charges no Cocaine for past 5 months hx of homelessness 03/20: Patient remains depressed; increased Wellbutrin thus far has not been helpful. Patient agrees to remain on it for awhile longer to see if can be effective 03/21 remains depressed. Patient says that he has been feeling jittery in his arms and legs ever since Wellbutrin was increased. He says it is not really tolerable. Discussed medications further and patient feels that Wellbutrin 300 with Zoloft 150 has done nothing for his depression at all. Patient agrees that this medication regimen is not effective as his depression persists. Discussed options, risks/side effects and patient agrees to get off both Wellbutrin and Zoloft and instead be titrated on to Effexor. Discussed behavioral activation and need to go to groups which patient said he will definitely start doing 03/22 Patient reports mood is better; wants to continue with cross titration. Denies any SI. Patient said he just wants to remain on the unit until Wednesday when he gets his money so he can get a hotel. Patient said he will attend groups. Discussed medication he does not want Gabapentin 03/23 continue tapering off and discontinuing Zoloft; continue titrating venlafaxine 03/24: continue tx plan. 03/25: Sleeping most of morning. Patient continues to report feeling depressed and anxious; pt stated, I feel this way everyday . encouraged to leave room; pt reports he plans on leaving room today rather than isolating. raji SI/HI/VH/AH. continue tx plan. 03/26 feeling better with some remaining depression; ambivalent about increasing venlafaxine; will leave for now and monitor mood. PLAN: - Admit to inpatient psychiatry - CV Discontinue Wellbutrin Tapered off Zoloft venlafaxine ER 75mg daily; may titrate further - Collateral information from family and providers. - Milieu treatment and group therapy. - Social work evaluation. - Disposition planning. Patient educated on: diagnosis, medication risk/benefits and therapeutic strategies Informed Consent: understands Reason for continued inpatient stay Substantial Risk for: stable for discharge and rapid decompensation Time Spent With Patient Time: Total time managing care of this patient today ____ minutes.
[2025-03-27] MEDS: Venlafaxine HCl ER 75 MG CAP.ER.24H PO (09:55)
--- NOTE | 2025-03-27 16:10 | HO.PM.IMPN ---
Subjective Subjective Date of Service: 03/27/25 Interval History: Patient is seen for red area and right lateral malleolus. Patient is status post left BKA, reports that he has no pain in the area. Small open area with redness and tenderness surrounding. He otherwise feels well, denies any shortness of breath, chest pain, fever, chills or any other concerning symptoms. Review of Systems Denies any shortness of breath, chest pain, headaches, dysuria, abdominal pain or discomfort, nausea, vomiting or diarrhea. Denies fever or chills. Physical Exam Exam: Exam: Alert and oriented X3, clam and cooperative. Answers questions. Neuro: CN II-X11 intact, no deficits, visual acuity intact EYES: PERRLA, EOM intact ENT: Hearing intact, MMM Cardiac: S1 S2 RRR, No ectopy Pulmonary: lungs clear to auscultation, No increased WOB. Abdominal: BS active in all 4 quadrants, no guarding or tenderness MSK: Strength 5/5 upper and lower extremities : Deferred Extremities: No edema in lower extremities Psych: Mood stable, Quiet and cooperative. Skin: Warm and dry, small open area to right lateral malleolus Vital Signs: Vital Signs: Last Vital Signs Pulse 88 03/23/25 08:00 Resp 16 03/25/25 20:00 Pulse Ox 95 03/23/25 08:00 O2 Del Method Room Air 03/23/25 08:00 Objective Data Active Medications Acetaminophen (Acetaminophen 325 Mg Tablet) 650 mg PO Q6H PRN PRN Reason: Headache/Pain, Scale 1-10 Al Hydroxide/Mg Hydroxide (Magnesium Hydrox/Alum Hydrox 30 Ml Oral.Susp) 30 ml PO Q6H PRN PRN Reason: Heartburn/Nausea Atorvastatin Calcium (Atorvastatin Calcium 20 Mg Tablet) 20 mg PO DAILY@1700 [facility] Last Admin: 03/26/25 17:35 Dose: 20 mg Documented By: GARRET Dextrose (Dextrose 50 % 25 Gm/50 Ml Syringe) 25 gm IVPUSH Q15M PRN; Protocol PRN Reason: per Hypoglycemia Standing Ord. Fenofibrate (Fenofibrate,Micronized 134 Mg Capsule) 134 mg PO DAILY [facility] Last Admin: 03/27/25 09:55 Dose: 134 mg Documented By: CHADWICK Glucose (Glucose Gel 15 Gm Gel..Gram.) 15 gm PO Q15M PRN; Protocol PRN Reason: per Hypoglycemia Standing Ord. Hydroxyzine HCl (Hydroxyzine Hcl 25 Mg Tablet) 25 mg PO Q6H PRN PRN Reason: mild anxiety Ibuprofen (Ibuprofen 600 Mg Tablet) 600 mg PO Q8H PRN PRN Reason: leg pain Last Admin: 03/21/25 13:10 Dose: 600 mg Documented By: OSWALDO Insulin Human Lispro (Insulin Lispro 100 Unit/Ml 3 Ml Vial) 0 unit SUBCUT BID@0830,1630 [facility]; Protocol Last Admin: 03/27/25 08:57 Dose: Not Given Documented By: CHADWICK Non-Admin Reason: Patient Refused Magnesium Hydroxide (Milk Of Magnesia 30 Ml Oral.Susp) 30 ml PO DAILY PRN PRN Reason: Constipation Nicotine (Nicotine 21 Mg Patch.Td24) 21 mg TRANSDERMA DAILY PRN PRN Reason: nicotine craving Nicotine Polacrilex (Nicotine Polacrilex 2 Mg Gum) 2 mg BUCCAL Q2H PRN PRN Reason: Nicotine Cravings Psyllium Hydrophilic Mucilloid (Psyllium Seed 3.7 Gm Packet) 3.7 gm PO DAILY PRN PRN Reason: Constipation Last Admin: 03/23/25 12:36 Dose: 3.7 gm Documented By: PHYLLIS Trazodone HCl (Trazodone Hcl 50 Mg Tablet) 50 mg PO BEDTIME MRX1 PRN PRN Reason: Insomnia Venlafaxine HCl (Venlafaxine Hcl Er 75 Mg Cap.Er.24h) 75 mg PO DAILY [facility] Last Admin: 03/27/25 09:55 Dose: 75 mg Documented By: CHADWICK Labs 03/18/25 08:49 Labs: Laboratory Results - last 24 hr 03/26/25 16:48 POC Glucose 165 H Assessment and Plan (1) Wound cellulitis: Status: Acute Plan This is a 59-year-old male with history of type 2 diabetes, obesity, hypertension, major depressive disorder, history of osteomyelitis and subsequent left BKA, hyperlipidemia, left BKA who admitted to for treatment of major depressive disorder and suicidal ideation. Major depressive disorder and suicidal ideation Treatment per psychiatric team Right lateral malleolus-possible tissue injury Will treat with cellulitis due to patient's history of left BKA Alleve foam dressing, offload pressure T2DM Per patient's report Metformin stopped due to lactic acidosis Hemoglobin A1c noted to be 6.9 Recommended and discussed diabetic diet with patient, patient has large number of regular sugar packets and snacks his bedside. Discussed healthy choices Follow POCs, cover with SSI as needed Patient is a good candidate for GLP 1 as an outpatient HLD/HTN Continue Lofibra, Lipitor No blood pressures available for review. If blood pressures elevated consider starting ONEL or ARB. Morbid obesity Encourage healthy food choices. Thank you for allowing me to participate in the care of this patient. Will follow with you, please notify medical provider with any changes in condition or concerns. Quality Stroke Does the patient have a stroke diagnosis?: No VTE Prior VTE?: No VTE Risk Level:: Medical - low VTE Device Contraindication: Treatment Not Indicated VTE Drug Contraindication: Treatment Not Indicated
[2025-03-27 17:19] LABS: Glucose, Whole Blood 144 mg/dL (60-115)
--- NOTE | 2025-03-27 23:13 | P.PNPSI_ITS ---
Subjective Subjective Date of Service: 03/27/25 Reason For Visit: F32.9 Interim History: met with patient; discussed with team pt reports mood is better; he thinks Venlafaxine at current does is adequate and does not need to increase dose. focused on dispo Mental Status Exam Mental Status Exam Narrative: General appearance: Obese.? Casual attire; adequate hygiene and grooming;. Left BKA. Eye contact: Adequate. Musculoskeletal: Left BKA. Wheelchair. Manner/behavior: cooperative, appropriate, calm; going to groups Speech:? Fluent, with normal rate, tone and volume. Language: No receptive or expressive language impairment? Mood good Affect: constricted range, congruent to mood and without lability? Thought process/associations: Goal oriented; organized.?? Thought content: No SI Trying to be hopeful about housing; no delusional ideations Hallucinations: No AVH Suicidality: None Homicidally/violence: none.? Judgment/insight: fair ? .? Diagnostics Labs 03/18/25 08:49 Labs: Laboratory Results - last 48 hr 03/26/25 03/26/25 03/27/25 07:50 16:48 17:14 POC Glucose 151 H 165 H 144 H Medications Medications Current Medications Acetaminophen (Acetaminophen 325 Mg Tablet) 650 mg PO Q6H PRN PRN Reason: Headache/Pain, Scale 1-10 Al Hydroxide/Mg Hydroxide (Magnesium Hydrox/Alum Hydrox 30 Ml Oral.Susp) 30 ml PO Q6H PRN PRN Reason: Heartburn/Nausea Atorvastatin Calcium (Atorvastatin Calcium 20 Mg Tablet) 20 mg PO DAILY@1700 [facility] Last Admin: 03/27/25 16:51 Dose: 20 mg Cephalexin HCl (Cephalexin 500 Mg Capsule) 500 mg PO Q6H [facility] Stop: 04/06/25 16:59 Last Admin: 03/27/25 22:45 Dose: 500 mg Dextrose (Dextrose 50 % 25 Gm/50 Ml Syringe) 25 gm IVPUSH Q15M PRN; Protocol PRN Reason: per Hypoglycemia Standing Ord. Fenofibrate (Fenofibrate,Micronized 134 Mg Capsule) 134 mg PO DAILY [facility] Last Admin: 03/27/25 09:55 Dose: 134 mg Glucose (Glucose Gel 15 Gm Gel..Gram.) 15 gm PO Q15M PRN; Protocol PRN Reason: per Hypoglycemia Standing Ord. Hydroxyzine HCl (Hydroxyzine Hcl 25 Mg Tablet) 25 mg PO Q6H PRN PRN Reason: mild anxiety Ibuprofen (Ibuprofen 600 Mg Tablet) 600 mg PO Q8H PRN PRN Reason: leg pain Last Admin: 03/21/25 13:10 Dose: 600 mg Insulin Human Lispro (Insulin Lispro 100 Unit/Ml 3 Ml Vial) 0 unit SUBCUT BID@0830,1630 [facility]; Protocol Last Admin: 03/27/25 17:26 Dose: Not Given Magnesium Hydroxide (Milk Of Magnesia 30 Ml Oral.Susp) 30 ml PO DAILY PRN PRN Reason: Constipation Nicotine (Nicotine 21 Mg Patch.Td24) 21 mg TRANSDERMA DAILY PRN PRN Reason: nicotine craving Nicotine Polacrilex (Nicotine Polacrilex 2 Mg Gum) 2 mg BUCCAL Q2H PRN PRN Reason: Nicotine Cravings Psyllium Hydrophilic Mucilloid (Psyllium Seed 3.7 Gm Packet) 3.7 gm PO DAILY PRN PRN Reason: Constipation Last Admin: 03/23/25 12:36 Dose: 3.7 gm Trazodone HCl (Trazodone Hcl 50 Mg Tablet) 50 mg PO BEDTIME MRX1 PRN PRN Reason: Insomnia Venlafaxine HCl (Venlafaxine Hcl Er 75 Mg Cap.Er.24h) 75 mg PO DAILY [facility] Last Admin: 03/27/25 09:55 Dose: 75 mg Allergies Allergies Allergy/AdvReac Type Severity Reaction Status Date / Time sulfamethoxazole (From Allergy Severe Itching Verified 03/16/25 19:49 Bactrim) trimethoprim (From Bactrim) Allergy Severe Itching Verified 03/16/25 19:49 Assessment & Plan Assessment & Plan (1) Depression, major, severe recurrence: Status: Acute Code(s): F33.2 - Major depressive disorder, recurrent severe without psychotic features Assessment and Plan: MDD (2) Wound cellulitis: Status: Acute Code(s): L03.90 - Cellulitis, unspecified (3) Type 2 diabetes mellitus: Status: Acute Code(s): E11.9 - Type 2 diabetes mellitus without complications (4) Hx of left BKA: Status: Acute Code(s): Z89.512 - Acquired absence of left leg below knee Plan This is a 59-year-old male with history of type 2 diabetes, hyperlipidemia, left BKA who admitted to [facility] from outside hospital for increase depression and SI with plan to OD. He carries the diagnosis of MDD. Past history of substance use. Worsening depression since getting a left BKA for chronic osteomyelitis. Hospital course: 03/19 Patient is still depressed; however all SI resolved. Patient discussed his history. . Patient reports there are periods of time when his mood has been good, even without medications; however he seems to decompensate with life's challenges. Patient not sure if current medication regimen is helpful at this time but agrees to increase Wellbutrin XL to 450 mg. Patient is anxious about being discharged to the streets as he struggles to navigate homelessness wheelchair-bound Discussed hx and denies hx of manic type episodes or behaviors Denies hx of trauma dad severe alcoholism; committed suicide with a gun (his brother found him) pt quit HS in 9th grade...Special classes...undiagnosed ADHD (discussed intuniv; pt will consider) was taking off Metformin for Lactic Acidosis... hx of incarceration high speed chases likely while abusing cocaine; A&B; no outstanding charges no Cocaine for past 5 months hx of homelessness 03/20: Patient remains depressed; increased Wellbutrin thus far has not been helpful. Patient agrees to remain on it for awhile longer to see if can be effective 03/21 remains depressed. Patient says that he has been feeling jittery in his arms and legs ever since Wellbutrin was increased. He says it is not really tolerable. Discussed medications further and patient feels that Wellbutrin 300 with Zoloft 150 has done nothing for his depression at all. Patient agrees that this medication regimen is not effective as his depression persists. Discussed options, risks/side effects and patient agrees to get off both Wellbutrin and Zoloft and instead be titrated on to Effexor. Discussed behavioral activation and need to go to groups which patient said he will definitely start doing 03/22 Patient reports mood is better; wants to continue with cross titration. Denies any SI. Patient said he just wants to remain on the unit until Wednesday when he gets his money so he can get a hotel. Patient said he will attend groups. Discussed medication he does not want Gabapentin 03/23 continue tapering off and discontinuing Zoloft; continue titrating venlafaxine 03/24: continue tx plan. 03/25: Sleeping most of morning. Patient continues to report feeling depressed and anxious; pt stated, I feel this way everyday . encouraged to leave room; pt reports he plans on leaving room today rather than isolating. raji SI/HI/VH/AH. continue tx plan. 03/26 feeling better with some remaining depression; ambivalent about increasing venlafaxine; will leave for now and monitor mood. 03/27 pt reports mood is better and says he's good Does not want to increase effexor PLAN: - Admit to inpatient psychiatry - CV Discontinue Wellbutrin Tapered off Zoloft venlafaxine ER 75mg daily; may titrate further - Collateral information from family and providers. - Milieu treatment and group therapy. - Social work evaluation. - Disposition planning. Right lateral malleolus-possible tissue injury Will treat with cellulitis due to patient's history of left BKA Alleve foam dressing, offload pressure Patient educated on: diagnosis, medication risk/benefits and therapeutic strategies Informed Consent: understands Reason for continued inpatient stay Substantial Risk for: stable for discharge and rapid decompensation Time Spent With Patient Time: Total time managing care of this patient today ____ minutes.
[2025-03-28] MEDS: Venlafaxine HCl ER 75 MG CAP.ER.24H PO (09:37)
--- NOTE | 2025-03-28 18:19 | HO.PSYCHPN ---
Subjective Subjective Date of Service: 03/28/25 Reason For Visit: F32.9 Interim History: met with pt; discussed with team remains in good mood; focused on dispo plans Mental Status Exam Mental Status Exam Narrative: General appearance: Obese.? Casual attire; adequate hygiene and grooming;. Left BKA. Eye contact: Adequate. Musculoskeletal: Left BKA. Wheelchair. Manner/behavior: cooperative, appropriate, calm; going to groups Speech:? Fluent, with normal rate, tone and volume. Language: No receptive or expressive language impairment? Mood good Affect: constricted range, congruent to mood and without lability? Thought process/associations: Goal oriented; organized.?? Thought content: No SI Trying to be hopeful about housing; no delusional ideations Hallucinations: No AVH Suicidality: None Homicidally/violence: none.? Judgment/insight: fair ? .? Diagnostics Labs 03/18/25 08:49 Labs: Laboratory Results - last 48 hr 03/27/25 17:14 POC Glucose 144 H Medications Medications Current Medications Acetaminophen (Acetaminophen 325 Mg Tablet) 650 mg PO Q6H PRN PRN Reason: Headache/Pain, Scale 1-10 Al Hydroxide/Mg Hydroxide (Magnesium Hydrox/Alum Hydrox 30 Ml Oral.Susp) 30 ml PO Q6H PRN PRN Reason: Heartburn/Nausea Atorvastatin Calcium (Atorvastatin Calcium 20 Mg Tablet) 20 mg PO DAILY@1700 [facility] Last Admin: 03/28/25 16:57 Dose: 20 mg Cephalexin HCl (Cephalexin 500 Mg Capsule) 500 mg PO Q6H COUNTS INCLUDE 234 BEDS AT [facility] Stop: 04/06/25 16:59 Last Admin: 03/28/25 16:57 Dose: 500 mg Dextrose (Dextrose 50 % 25 Gm/50 Ml Syringe) 25 gm IVPUSH Q15M PRN; Protocol PRN Reason: per Hypoglycemia Standing Ord. Fenofibrate (Fenofibrate,Micronized 134 Mg Capsule) 134 mg PO DAILY COUNTS INCLUDE 234 BEDS AT [facility] Last Admin: 03/28/25 09:37 Dose: 134 mg Glucose (Glucose Gel 15 Gm Gel..Gram.) 15 gm PO Q15M PRN; Protocol PRN Reason: per Hypoglycemia Standing Ord. Hydroxyzine HCl (Hydroxyzine Hcl 25 Mg Tablet) 25 mg PO Q6H PRN PRN Reason: mild anxiety Ibuprofen (Ibuprofen 600 Mg Tablet) 600 mg PO Q8H PRN PRN Reason: leg pain Last Admin: 03/21/25 13:10 Dose: 600 mg Magnesium Hydroxide (Milk Of Magnesia 30 Ml Oral.Susp) 30 ml PO DAILY PRN PRN Reason: Constipation Nicotine (Nicotine 21 Mg Patch.Td24) 21 mg TRANSDERMA DAILY PRN PRN Reason: nicotine craving Nicotine Polacrilex (Nicotine Polacrilex 2 Mg Gum) 2 mg BUCCAL Q2H PRN PRN Reason: Nicotine Cravings Psyllium Hydrophilic Mucilloid (Psyllium Seed 3.7 Gm Packet) 3.7 gm PO DAILY PRN PRN Reason: Constipation Last Admin: 03/23/25 12:36 Dose: 3.7 gm Trazodone HCl (Trazodone Hcl 50 Mg Tablet) 50 mg PO BEDTIME MRX1 PRN PRN Reason: Insomnia Venlafaxine HCl (Venlafaxine Hcl Er 75 Mg Cap.Er.24h) 75 mg PO DAILY [facility] Last Admin: 03/28/25 09:37 Dose: 75 mg Allergies Allergies Allergy/AdvReac Type Severity Reaction Status Date / Time sulfamethoxazole (From Allergy Severe Itching Verified 03/16/25 19:49 Bactrim) trimethoprim (From Bactrim) Allergy Severe Itching Verified 03/16/25 19:49 Assessment & Plan Assessment & Plan (1) Depression, major, severe recurrence: Status: Acute Code(s): F33.2 - Major depressive disorder, recurrent severe without psychotic features Assessment and Plan: MDD (2) Wound cellulitis: Status: Acute Code(s): L03.90 - Cellulitis, unspecified (3) Type 2 diabetes mellitus: Status: Acute Code(s): E11.9 - Type 2 diabetes mellitus without complications (4) Hx of left BKA: Status: Acute Code(s): Z89.512 - Acquired absence of left leg below knee Plan This is a 59-year-old male with history of type 2 diabetes, hyperlipidemia, left BKA who admitted to from outside hospital for increase depression and SI with plan to OD. He carries the diagnosis of MDD. Past history of substance use. Worsening depression since getting a left BKA for chronic osteomyelitis. Hospital course: 03/19 Patient is still depressed; however all SI resolved. Patient discussed his history. . Patient reports there are periods of time when his mood has been good, even without medications; however he seems to decompensate with life's challenges. Patient not sure if current medication regimen is helpful at this time but agrees to increase Wellbutrin XL to 450 mg. Patient is anxious about being discharged to the streets as he struggles to navigate homelessness wheelchair-bound Discussed hx and denies hx of manic type episodes or behaviors Denies hx of trauma dad severe alcoholism; committed suicide with a gun (his brother found him) pt quit HS in 9th grade...Special classes...undiagnosed ADHD (discussed intuniv; pt will consider) was taking off Metformin for Lactic Acidosis... hx of incarceration high speed chases likely while abusing cocaine; A&B; no outstanding charges no Cocaine for past 5 months hx of homelessness 03/20: Patient remains depressed; increased Wellbutrin thus far has not been helpful. Patient agrees to remain on it for awhile longer to see if can be effective 03/21 remains depressed. Patient says that he has been feeling jittery in his arms and legs ever since Wellbutrin was increased. He says it is not really tolerable. Discussed medications further and patient feels that Wellbutrin 300 with Zoloft 150 has done nothing for his depression at all. Patient agrees that this medication regimen is not effective as his depression persists. Discussed options, risks/side effects and patient agrees to get off both Wellbutrin and Zoloft and instead be titrated on to Effexor. Discussed behavioral activation and need to go to groups which patient said he will definitely start doing 03/22 Patient reports mood is better; wants to continue with cross titration. Denies any SI. Patient said he just wants to remain on the unit until Wednesday when he gets his money so he can get a hotel. Patient said he will attend groups. Discussed medication he does not want Gabapentin 03/23 continue tapering off and discontinuing Zoloft; continue titrating venlafaxine 03/24: continue tx plan. 03/25: Sleeping most of morning. Patient continues to report feeling depressed and anxious; pt stated, I feel this way everyday . encouraged to leave room; pt reports he plans on leaving room today rather than isolating. deneis SI/HI/VH/AH. continue tx plan. 03/26 feeling better with some remaining depression; ambivalent about increasing venlafaxine; will leave for now and monitor mood. 03/27 pt reports mood is better and says he's good Does not want to increase effexor PLAN: - Admit to inpatient psychiatry - CV Discontinue Wellbutrin Tapered off Zoloft venlafaxine ER 75mg daily; may titrate further - Collateral information from family and providers. - Milieu treatment and group therapy. - Social work evaluation. - Disposition planning. Right lateral malleolus-possible tissue injury Will treat with cellulitis due to patient's history of left BKA Alleve foam dressing, offload pressure Patient educated on: diagnosis, medication risk/benefits and therapeutic strategies Informed Consent: understands Reason for continued inpatient stay Substantial Risk for: stable for discharge and rapid decompensation Time Spent With Patient Time: Total time managing care of this patient today ____ minutes.
[2025-03-29] MEDS: Venlafaxine HCl ER 75 MG CAP.ER.24H PO (09:38)
--- NOTE | 2025-03-29 17:28 | HO.PSYCHPN ---
Subjective Subjective Date of Service: 03/29/25 Reason For Visit: F32.9 Interim History: Met with patient; discussed with team remains stable; says only needs venlafaxine and abx, has all other scripts. looking forward to ks Mental Status Exam Mental Status Exam Narrative: General appearance: Obese.? Casual attire; adequate hygiene and grooming;. Left BKA. Eye contact: Adequate. Musculoskeletal: Left BKA. Wheelchair. Manner/behavior: cooperative, appropriate, calm; going to groups Speech:? Fluent, with normal rate, tone and volume. Language: No receptive or expressive language impairment? Mood good Affect: constricted range, congruent to mood and without lability? Thought process/associations: Goal oriented; organized.?? Thought content: No SI Trying to be hopeful about housing; no delusional ideations Hallucinations: No AVH Suicidality: None Homicidally/violence: none.? Judgment/insight: fair ? .? Diagnostics Labs 03/18/25 08:49 Medications Medications Current Medications Acetaminophen (Acetaminophen 325 Mg Tablet) 650 mg PO Q6H PRN PRN Reason: Headache/Pain, Scale 1-10 Al Hydroxide/Mg Hydroxide (Magnesium Hydrox/Alum Hydrox 30 Ml Oral.Susp) 30 ml PO Q6H PRN PRN Reason: Heartburn/Nausea Atorvastatin Calcium (Atorvastatin Calcium 20 Mg Tablet) 20 mg PO DAILY@1700 [facility] Last Admin: 03/28/25 16:57 Dose: 20 mg Cephalexin HCl (Cephalexin 500 Mg Capsule) 500 mg PO Q6H [facility] Stop: 04/06/25 16:59 Last Admin: 03/29/25 14:04 Dose: 500 mg Dextrose (Dextrose 50 % 25 Gm/50 Ml Syringe) 25 gm IVPUSH Q15M PRN; Protocol PRN Reason: per Hypoglycemia Standing Ord. Fenofibrate (Fenofibrate,Micronized 134 Mg Capsule) 134 mg PO DAILY [facility] Last Admin: 03/29/25 09:38 Dose: 134 mg Glucose (Glucose Gel 15 Gm Gel..Gram.) 15 gm PO Q15M PRN; Protocol PRN Reason: per Hypoglycemia Standing Ord. Hydroxyzine HCl (Hydroxyzine Hcl 25 Mg Tablet) 25 mg PO Q6H PRN PRN Reason: mild anxiety Ibuprofen (Ibuprofen 600 Mg Tablet) 600 mg PO Q8H PRN PRN Reason: leg pain Last Admin: 03/21/25 13:10 Dose: 600 mg Magnesium Hydroxide (Milk Of Magnesia 30 Ml Oral.Susp) 30 ml PO DAILY PRN PRN Reason: Constipation Nicotine (Nicotine 21 Mg Patch.Td24) 21 mg TRANSDERMA DAILY PRN PRN Reason: nicotine craving Nicotine Polacrilex (Nicotine Polacrilex 2 Mg Gum) 2 mg BUCCAL Q2H PRN PRN Reason: Nicotine Cravings Psyllium Hydrophilic Mucilloid (Psyllium Seed 3.7 Gm Packet) 3.7 gm PO DAILY PRN PRN Reason: Constipation Last Admin: 03/23/25 12:36 Dose: 3.7 gm Trazodone HCl (Trazodone Hcl 50 Mg Tablet) 50 mg PO BEDTIME MRX1 PRN PRN Reason: Insomnia Venlafaxine HCl (Venlafaxine Hcl Er 75 Mg Cap.Er.24h) 75 mg PO DAILY [facility] Last Admin: 03/29/25 09:38 Dose: 75 mg Allergies Allergies Allergy/AdvReac Type Severity Reaction Status Date / Time sulfamethoxazole (From Allergy Severe Itching Verified 03/16/25 19:49 Bactrim) trimethoprim (From Bactrim) Allergy Severe Itching Verified 03/16/25 19:49 Assessment & Plan Assessment & Plan (1) Depression, major, severe recurrence: Status: Acute Code(s): F33.2 - Major depressive disorder, recurrent severe without psychotic features Assessment and Plan: MDD (2) Wound cellulitis: Status: Acute Code(s): L03.90 - Cellulitis, unspecified (3) Type 2 diabetes mellitus: Status: Acute Code(s): E11.9 - Type 2 diabetes mellitus without complications (4) Hx of left BKA: Status: Acute Code(s): Z89.512 - Acquired absence of left leg below knee Plan This is a 59-year-old male with history of type 2 diabetes, hyperlipidemia, left BKA who admitted to [facility] from outside hospital for increase depression and SI with plan to OD. He carries the diagnosis of MDD. Past history of substance use. Worsening depression since getting a left BKA for chronic osteomyelitis. Hospital course: 03/19 Patient is still depressed; however all SI resolved. Patient discussed his history. . Patient reports there are periods of time when his mood has been good, even without medications; however he seems to decompensate with life's challenges. Patient not sure if current medication regimen is helpful at this time but agrees to increase Wellbutrin XL to 450 mg. Patient is anxious about being discharged to the streets as he struggles to navigate homelessness wheelchair-bound Discussed hx and denies hx of manic type episodes or behaviors Denies hx of trauma dad severe alcoholism; committed suicide with a gun (his brother found him) pt quit HS in 9th grade...Special classes...undiagnosed ADHD (discussed intuniv; pt will consider) was taking off Metformin for Lactic Acidosis... hx of incarceration high speed chases likely while abusing cocaine; A&B; no outstanding charges no Cocaine for past 5 months hx of homelessness 03/20: Patient remains depressed; increased Wellbutrin thus far has not been helpful. Patient agrees to remain on it for awhile longer to see if can be effective 03/21 remains depressed. Patient says that he has been feeling jittery in his arms and legs ever since Wellbutrin was increased. He says it is not really tolerable. Discussed medications further and patient feels that Wellbutrin 300 with Zoloft 150 has done nothing for his depression at all. Patient agrees that this medication regimen is not effective as his depression persists. Discussed options, risks/side effects and patient agrees to get off both Wellbutrin and Zoloft and instead be titrated on to Effexor. Discussed behavioral activation and need to go to groups which patient said he will definitely start doing 03/22 Patient reports mood is better; wants to continue with cross titration. Denies any SI. Patient said he just wants to remain on the unit until Wednesday when he gets his money so he can get a hotel. Patient said he will attend groups. Discussed medication he does not want Gabapentin 03/23 continue tapering off and discontinuing Zoloft; continue titrating venlafaxine 03/24: continue tx plan. 03/25: Sleeping most of morning. Patient continues to report feeling depressed and anxious; pt stated, I feel this way everyday . encouraged to leave room; pt reports he plans on leaving room today rather than isolating. deneis SI/HI/VH/AH. continue tx plan. 03/26 feeling better with some remaining depression; ambivalent about increasing venlafaxine; will leave for now and monitor mood. 03/27 pt reports mood is better and says he's good Does not want to increase effexor 03/29 stable; appropriate for dc PLAN: - Admit to inpatient psychiatry - CV Discontinue Wellbutrin Tapered off Zoloft venlafaxine ER 75mg daily; may titrate further - Collateral information from family and providers. - Milieu treatment and group therapy. - Social work evaluation. - Disposition planning. Right lateral malleolus-possible tissue injury Will treat with cellulitis due to patient's history of left BKA Alleve foam dressing, offload pressure Patient educated on: diagnosis and medication risk/benefits Informed Consent: understands Reason for continued inpatient stay Substantial Risk for: stable for discharge Time Spent With Patient Time: Total time managing care of this patient today ____ minutes.
[2025-03-30] MEDS: Venlafaxine HCl ER 75 MG CAP.ER.24H PO (08:57)
[2025-03-30] MEDS: Naloxone HCl Nasal TAKE HOME 4 MG SPRAY 8 MG NOSTRILALT (10:53)
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
== END 2025-03-30 12:00 | disposition home or self-care (01) | DRG 885 ==
PROVIDERS: Nurse Practitioner Psychiatric/Mental Health; Admitting Provider Psychiatry & Neurology Psychiatry; Visit Provider Psychiatry & Neurology Psychiatry
DX: F33.2 Major depressive disorder, recurrent severe without psychotic features (principal); R45.851 Suicidal ideations; L03.115 Cellulitis of right lower limb; E78.5 Hyperlipidemia, unspecified; E66.01 Morbid (severe) obesity due to excess calories; Z71.3 Dietary counseling and surveillance; E11.9 Type 2 diabetes mellitus without complications; Z89.512 Acquired absence of left leg below knee; Z87.891 Personal history of nicotine dependence; Z79.84 Long term (current) use of oral hypoglycemic drugs; Z79.899 Other long term (current) drug therapy
CPT/HCPCS: 36415; 80053; 80061; 82947; 83036; 84439; 84443

== ENCOUNTER → 2025-03-16 19:07 | Outpatient (BNV) | payer OTHER, SELFPAY | PROVIDERS: Admitting Provider Psychiatry & Neurology Psychiatry; Visit Provider Psychiatry & Neurology Psychiatry | DX: F33.2 Major depressive disorder, recurrent severe without psychotic features (principal); E11.9 Type 2 diabetes mellitus without complications; Z89.512 Acquired absence of left leg below knee | CPT/HCPCS: 99223; 99232 ==

== ENCOUNTER → 2025-03-16 19:07 | Outpatient (BNV) | payer MEDICAID, SELFPAY | PROVIDERS: Admitting Provider Psychiatry & Neurology Psychiatry; Visit Provider Physician Assistant Medical | DX: Z00.00 Encounter for general adult medical examination without abnormal findings (principal) | CPT/HCPCS: 99429 ==